=== PATIENT | male | born 1955 | race Caucasian/White ===

== ENCOUNTER 2020-08-01 09:58 | Outpatient (CLI) | payer OTHER, SELFPAY ==
[2020-08-01 10:53] LABS: SARS-CoV-2 Ag Positive (Negative)
== END 2020-08-01 09:59 | disposition home or self-care (01) ==
LOC: CHSLAB 10:04
PROVIDERS: PCP Internal Medicine; Visit Provider Internal Medicine
DX: U07.1 COVID-19 (principal); R50.9 Fever, unspecified; R53.83 Other fatigue
CPT/HCPCS: 87426

== ENCOUNTER 2021-04-02 11:42 | Outpatient (CLI) | payer OTHER, SELFPAY ==
--- NOTE | ~2021-04-02 | XR_ITS ---
EXAMINATION: XR lumbar spine 2-3V DATE: 04/02/2021 12:09 INDICATION: Low back pain TECHNIQUE: Anteroposterior and lateral views of the lumbar spine, and cone-down lateral view of the l umbosacral junction were obtained. COMPARISON: None. FINDINGS: Bone alignment is normal. There is no fracture. There is severe loss of intervertebral disc space height throughout the lumbar spine. The vertebral body heights are maintained. There is severe facet osteoarthritis throughout the lumbar spine. IMPRESSION: 1. Severe lumbar spondylosis without acute findings. Reviewed, dictated and finalized at location A.
--- NOTE | ~2021-04-02 | XR_ITS ---
EXAMINATION: XR hip LT min 2V INDICATION: Left hip pain TECHNIQUE: Two views of the left hip are obtained. COMPARISON: None available FINDINGS: Bone alignment is normal. There is no fracture. The soft tissues are unremarkable. IMPRESSION: 1. No acute osseous abnormality. Reviewed, dictated and finalized at location A.
--- NOTE | ~2021-04-02 | XR_ITS ---
EXAMINATION: XR sacroiliac joints min 3V DATE: 04/02/2021 12:08 INDICATION: Sacroiliac joint pain TECHNIQUE: AP and left and right oblique views of the sacroiliac joints were obtained. COMPARISON: CT dated 03/31/2015 FINDINGS: Alignment is normal. No fracture. Nonuniform joint space narrowing at the bilateral sacral joints, mild on the left and moderate on the right. No erosions to suggest inflammatory sacroiliitis. Absent coccyx which could be either developmental or sequela of prior surgery. Moderate lower lumbar spondylosis. Mild bilateral hip osteoarthritis with small right os acetabuli. IMPRESSION: 1. 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 Reviewed, dictated and finalized at location A.
== END 2021-04-02 11:43 | disposition home or self-care (01) ==
LOC: CHSLAB 11:46
PROVIDERS: PCP Internal Medicine; Visit Provider Internal Medicine
DX: M54.5 Low back pain (principal); M53.3 Sacrococcygeal disorders, not elsewhere classified; M25.552 Pain in left hip
CPT/HCPCS: 72100; 72202; 73502

== ENCOUNTER 2021-04-10 12:15 | Outpatient (CLI) | payer OTHER, SELFPAY ==
--- NOTE | ~2021-04-10 | XR_ITS ---
EXAMINATION: XR sacroiliac jt inj w imag BI DATE: 04/10/2021 14:37 INDICATION: Lateral sacral iliac joint pain TECHNIQUE: A time-out was performed to verify the patient's name, date of , and procedure to b e performed. The procedure including the risks, benefits, and alternatives was discussed with the pat ient. Risks discussed included bleeding and infection. The patient understood the risks and agreed to proceed. The skin overlying the left sacroiliac joint was prepped and draped in usual sterile fashio n. Anesthetic was administered with 1% lidocaine subcutaneously. A 22 G needle was advanced under f luoroscopic guidance into the joint. Localized deflection of the needle tip with angulation of the ne edle as well as injection of 1 mL of Omnipaque 240 confirmed intra-articular position of the needle. Subsequently, injectate consisting of 7 mL of a 5:1:1 mixture of 1% lidocaine: 4 mg/mL dexamethasone : 40 mg/mL Kenalog for a total dosage of 4 mg dexamethasone, 40 mg Kenalog was instilled. Washout of contrast was seen confirming intra-articular administration. The needle was removed and the entry sit e was cleaned and dressed. Attention was then turned to the right sacroiliac joint with the overlying skin prepped and draped in usual sterile fashion. Anesthetic was again administered with 1% lidocaine subcutaneously. A 22 G ne edle was advanced under fluoroscopic guidance into the joint. Localized deflection of the needle tip with angulation of the needle as well as injection of 1 mL of Omnipaque 240 confirmed intra-articular position of the needle. Subsequently, injectate consisting of 7 mL of a 5:1:1 mixture of 1% lidocai ne: 4 mg/mL dexamethasone: 40 mg/mL Kenalog for a total dosage of 4 mg dexamethasone, 40 mg Kenalog w as instilled. Washout of contrast was seen confirming intra-articular administration. The needle was removed and the entry site was cleaned and dressed. There were no immediate complications. Fluoroscop y exposure time was 0.8 minutes. The total number of images was 7. FINDINGS: Real-time fluoroscopy demonstrates the needle in first the left sacroiliac joint and subseq uently in the right sacroiliac joint. On both sides the patient's pain prior to procedure:2/10. Emelyn ent's pain on both sides following the procedure: 0/10. IMPRESSION: 1. Successful bilateral sacroiliac joint injections of local anesthetic and steroid with decrease in the patient's presenting pain. Reviewed, dictated and finalized at location A. IMPRESSION: 1. Successful bilateral sacroiliac joint injections of local anesthetic and erick roid with decrease in the patient's presenting pain.
== END 2021-04-10 12:16 | disposition home or self-care (01) ==
PROVIDERS: PCP Internal Medicine; Visit Provider Internal Medicine
DX: M53.3 Sacrococcygeal disorders, not elsewhere classified (principal)
CPT/HCPCS: 27096; G0260; J1100; J3301; Q9966

== ENCOUNTER 2021-05-15 12:54 | Outpatient (RCR) | payer OTHER, SELFPAY ==
--- NOTE | 2021-05-15 14:07 | PTOPEVAL ---
Thank you for referring Deion Lopez to [facility].? The patient is scheduled to be seen for therapy? ____x/week for ___ weeks. Please review, sign, date and return this plan of care POLO. I agree with and certify that the following plan of care is medically necessary. Referring Physician Date Admitting Provider: Attending Provider: Anastacio Johnson MD Referring Provider: *PT Outpatient Evaluation Start: 05/15/21 13:07 Freq: Status: Active Protocol: Document 05/15/21 13:05 MALI (Rec: 05/15/21 14:07 MALI [email or web address]) Therapy Assessment Status Assessment Status Assessment Status Evaluation Evaluation Information Problem Diagnosis low back/hip pain Onset 05/09/21 Additional Evaluation Detail oswestry = 34% functionally declined Subjective Information patient reports he has Query Text:As Reported By Patient/ increased he has increased Family pain in the SI joints when he lays down and sits for increased time. he reports the pain feels like a burning sensation. he reports this has been going on since about november of this year. he reports the L side lower back and buttock are worse than the R. he reports he does ocassionally have L sided groin pain as well. he reports he has had shots in the bilaeral SI joints. he reports pain is worse in the afternoon. Prior Level of Function Comments Additional Prior Level of Function prior to november, he reports no Comments issues with the back or hips for years. Pain Assessment Timing of Pain Assessment Timing of Pain Assessment Assessment Pain Scale Pain Scale Used Numeric (1 - 10) Self Report Pain Assessment Lower Back Reported Pain Level 1 Pain Description Burning Pain Frequency Chronic Greatest Pain Intensity 4 Additional Pain Comments L worse than R side pain/ burning Pain Score Pain Score 1: Self Report Interventions Used Interventions Used By Clinicians Activity or ADL's,Education, Electrical Stimulation, Exercise,Heat,Manual Therapy Techniques Lower Extremity Range of Motion General Lower Extremity Ran
--- NOTE | 2021-06-12 11:33 | PTOPEVAL ---
Thank you for referring Deion Lopez to [facility].? The patient is scheduled to be seen for therapy? ____x/week for ___ weeks. Please review, sign, date and return this plan of care POLO. I agree with and certify that the following plan of care is medically necessary. Referring Physician Date Admitting Provider: Attending Provider: Anastacio Johnson MD Referring Provider: *PT Outpatient Evaluation Start: 05/15/21 13:07 Freq: Status: Active Protocol: Document 06/12/21 11:00 ACR (Rec: 06/12/21 11:32 [email or web address]) Therapy Assessment Status Assessment Status Assessment Status Discharge Evaluation Information Problem Diagnosis low back/hip pain Onset 05/09/21 Subjective Information Patient reports that he is Query Text:As Reported By Patient/ good to go and has no Family difficulty with anything anymore. He reports no pain and is doing all of his exercises at home. Patient reports no burning sensations since he began and only has pain in the groin occasionally . Pain Assessment Timing of Pain Assessment Timing of Pain Assessment Assessment Pain Scale Pain Scale Used Numeric (1 - 10) Self Report Pain Assessment Left Groin Reported Pain Level 0 Greatest Pain Intensity 2 Lower Back Reported Pain Level 0 Greatest Pain Intensity 2 Pain Score Pain Score 0,0: Self Report Interventions Used Interventions Used By Clinicians Activity or ADL's,Exercise Cervical and Lumbar Muscle Testing Lumbar Strength Upper Abdominal Strength 3+Fair+ Lower Abdominal Strength 3+Fair+ Lower Extremity Muscle Strength Testing Hip Strength Left Hip Flexion Strength 4+ Good + Right Hip Flexion Strength 4+ Good + Knee Strength Bilateral Knee Flexion Strength 5 Normal Knee Extension Strength 5 Normal Ankle Strength Bilateral Ankle Dorsiflexion Strength 5 Normal Ankle Plantarflexion Strength 4+ Good + Muscle Length Testing Muscle Length Testing Piriformis w/Hip Flexion >90 Degrees (R) Moderate Tightness,(L) Moderate Tightness Left Hamstring Length 10 Query Text:(90 - 90 Position) Right Hamstring Length 10 Query Text:(90 - 90 Position) Palpation Assessment Palpation Palpation Patient has no TTP this visit. Special Tests-Lower Extremity Hip Special Tests Hip Scouring Negative Left,Negative Right CHRISTIAN Negative Left,Negative Right
== END 2021-06-12 11:40 | disposition home or self-care (01) ==
LOC: CHSPT 12:54
PROVIDERS: PCP Internal Medicine; Visit Provider Internal Medicine
DX: M54.5 Low back pain (principal); M25.559 Pain in unspecified hip
CPT/HCPCS: 97014; 97110; 97161; 97530; G0283

== ENCOUNTER 2021-07-30 12:29 | Outpatient (CLI) | payer OTHER, SELFPAY ==
--- NOTE | ~2021-07-30 | XR_ITS ---
EXAMINATION: XR sacroiliac jt inj w imag BI DATE: 07/30/2021 14:40 INDICATION: Bilateral sacroiliac joint pain TECHNIQUE: A time-out was performed to verify the patient's name, date of , and procedure to b e performed. The procedure including the risks, benefits, and alternatives was discussed with the pat ient. Risks discussed included bleeding and infection. The patient understood the risks and agreed to proceed. Attention was first turned to the left sacroiliac joint. The skin overlying the left sacroi liac joint was prepped and draped in usual sterile fashion. Anesthetic was administered with 1% lido stephanie subcutaneously. A 22 G needle was advanced under fluoroscopic guidance into the joint. Inject ion of 1 mL of Omnipaque 240 confirmed intra-articular position of the needle. Subsequently, injecta te consisting of 5 mL of a 3:1:1 mixture of 1% lidocaine, 4 mg/mL dexamethasone and 40 mg/mL Kenalog for a total dosage of 4 mg dexamethasone and 40 mg Kenalog was instilled. Washout of contrast was see n confirming intra-articular administration. The needle was removed and the entry site was cleaned an d dressed. Attention was then turned to the right sacroiliac joint. The skin overlying the right sacroiliac join t was prepped and draped in usual sterile fashion. Anesthetic was administered with 1% lidocaine sub cutaneously. A 22 G needle was advanced under fluoroscopic guidance into the joint. Injection of 1 mL of Omnipaque 240 confirmed intra-articular position of the needle. Subsequently, injectate consis ting of 5 mL of a 3:1:1 mixture of 1% lidocaine, 4 mg/mL dexamethasone and 40 mg/mL Kenalog for a tot al dosage of 4 mg dexamethasone and 40 mg Kenalog was instilled. Washout of contrast was seen confirm ing intra-articular administration. The needle was removed and the entry site was cleaned and dressed . There were no immediate complications. Combined fluoroscopy exposure time for both procedures was 1 .1 minutes. The total number of images was 9. Total DAP was 7.767 mGycm^2. FINDINGS: Real-time fluoroscopy demonstrates the needle in the left and right sacroiliac joints. Emelyn ent's pain prior to procedure:04/17. Patient's pain 15 minutes following the procedure: 12/16. IMPRESSION: 1. Bilateral sacroiliac joint injections of local anesthetic and steroid with decrease in the patient 's presenting pain. Reviewed, dictated and finalized at location A. O BRACER IMPRESSION: 1. Bilateral sacroiliac joint injections of local anesthetic and steroid with d ecrease in the patient's presenting pain.
== END 2021-07-30 12:30 | disposition home or self-care (01) ==
LOC: ANHIMG 12:35
PROVIDERS: PCP Internal Medicine; Visit Provider Internal Medicine
DX: M53.3 Sacrococcygeal disorders, not elsewhere classified (principal)
CPT/HCPCS: 27096; G0260; J1100; J3301

== ENCOUNTER → 2021-10-04 09:14 | Outpatient (CLI) | payer OTHER, SELFPAY ==
--- NOTE | ~2021-10-04 | MR_ITS ---
EXAMINATION: MR lumbar spine wo [facility] EXAM DATE: 10/04/2021 09:59 INDICATION: Lumbar radiculopathy. TECHNIQUE: Multi-sequential, multiplanar MR images of the lumbar spine were obtained without contrast . Sagittal T1, T2, T2 fat saturation images. Axial T2 weighted images. There is no prior study for comparison. FINDINGS: There is moderate disc disease at L1-2 and L2-3. L3-4 vertebral bodies are fused. There is mild to moderate disc disease L4-5 and L5-S1. There is 3 mm retrolisthesis L2 on L3. The conus medull ines terminates at the L3 level and which is considered low in position, tethered. Mild diffuse loss of thoracolumbar vertebral body heights. There are no focal marrow signal abnormalities suspicious fo r malignancy or acute fracture. There is a horseshoe kidney, congenital variant. Level by level evaluation: T12-L1: Disc does not extend beyond the endplate margin. Facet arthropathy: Mild left. Neural foraminal stenosis: No stenosis. Central canal stenosis: No stenosis. L1-L2: There is a mild diffuse disc bulge. Facet arthropathy: Mild bilateral. Neural foraminal stenosis: Mild to moderate left. Central canal stenosis: No stenosis. L2-L3: There is a moderate diffuse disc bulge. Facet arthropathy: Moderate to severe right, moderate left. Neural foraminal stenosis: Moderate left, mild to moderate right. Central canal stenosis: Moderate left lateral recess stenosis, mild to moderate central canal. L3-L4: This level is partially fused. Facet arthropathy: Partially fused. Neural foraminal stenosis: No stenosis. Central canal stenosis: No stenosis. L4-L5: There is a moderate diffuse disc bulge. Facet arthropathy: Severe. Neural foraminal stenosis: Moderate to severe right, moderate left. Central canal stenosis: Severe. L5-S1: There is a mild to moderate diffuse disc bulge. Facet arthropathy: Severe. Neural foraminal stenosis: Moderate to severe bilateral. Central canal stenosis: Moderate to severe. IMPRESSION: 1. Low-lying conus medullaris tip, tethered cord. 2. Lower lumbar severe facet arthropathy and L4-5 Central canal stenosis. 3. L5-S1 moderate to severe central canal and bilateral neural foraminal stenosis. Reviewed, dictated and finalized at location A. PING AND RECEIVING SPECIALIST IMPRESSION: 1. Low-lying conus medullaris tip, tethered cord. 2. Lower lumbar severe facet arthropathy and L4-5 Central canal stenosis. 3. L5-S1 moderate to severe central canal and bilateral neural foraminal steno sis.
== END ==
PROVIDERS: PCP Internal Medicine; Visit Provider Internal Medicine
DX: M47.27 Other spondylosis with radiculopathy, lumbosacral region (principal); M48.07 Spinal stenosis, lumbosacral region; M47.25 Other spondylosis with radiculopathy, thoracolumbar region; M48.05 Spinal stenosis, thoracolumbar region
CPT/HCPCS: 72148

== ENCOUNTER 2022-10-31 12:25 | Outpatient (CLI) | payer MEDICARE, SELFPAY ==
--- NOTE | ~2022-10-31 | XR_ITS ---
XR lumbar spine min 4V 10/31/2022 12:55 Indication: Radiculopathy. Low back pain. Procedure: 4 views lumbar spine Comparison: 04/02/2021 Findings: There is severe disc narrowing at all lumbar levels. There is grade 1 degenerative spondylo sis listhesis at L4-5. There are prominent marginal osteophytes at each level. There is moderate-maureen re facet hypertrophy at L3-4 through L5-S1. No significant alteration of alignment with flexion or ex tension. Sacral foramen are symmetric. Impression: 1: Severe lumbar spondylosis. Reviewed, dictated and finalized at location L. ISION AGRICULTURE TECHNICIAN Impression: 1: Severe lumbar spondylosis.
== END 2022-10-31 12:26 | disposition home or self-care (01) ==
PROVIDERS: PCP Internal Medicine; Visit Provider Neurological Surgery
DX: M47.26 Other spondylosis with radiculopathy, lumbar region (principal); M48.061 Spinal stenosis, lumbar region without neurogenic claudication
CPT/HCPCS: 72110

== ENCOUNTER 2023-02-02 10:08 | Inpatient (IN) | payer MEDICARE, SELFPAY ==
[2023-02-02] VITALS (27 sets, daily range): BP systolic 109–124; BP diastolic 51–75; PULSE 79–97; RESP 17–22; TEMP 36.6–37.7; O2SAT 88–97; BMI 43.2
--- NOTE | ~2023-02-02 | CT_ITS ---
EXAMINATION: CTA chest PE protocol DATE: 02/02/2023 12:59 INDICATION: Shortness of breath. Chest pain. TECHNIQUE: Computed tomography angiography (CTA) of the chest was performed with 100 mL Omnipaque-350 intravenous contrast timed to evaluate the pulmonary arteries. Coronal maximum intensity projection 3D-reconstructions were created by the technologist. Automated exposure control and iterative reconst ruction technique were employed. The dose-length product was 967.08 mGy-cm. COMPARISON: None. FINDINGS: There are airspace and groundglass opacities involving right lower lobe and posterior segme nt right upper lobe with air bronchograms. There are airspace and groundglass opacities with volume l oss involving the apicoposterior segment left upper lobe and left lower lobe. No pleural effusion. Th ere is left ventricular enlargement of the heart. No pericardial effusion. The central pulmonary blanca jean paul are enlarged, consistent with pulmonary hypertension. There are acute pulmonary emboli in segmen aneudy arteries in right upper lobe, right lower lobe, and right middle lobe. There is mild mediastinal lymphadenopathy, likely reactive. There are bridging endplate osteophytes at multiple levels in the s pine, consistent with diffuse idiopathic skeletal hyperostosis (DISH). There is moderate thoracic spo ndylosis. IMPRESSION: 1. Acute pulmonary emboli in segmental arteries in right upper lobe, right middle lobe, and right low er lobe. 2. Airspace and groundglass opacities involving the upper and lower lobes, consistent with pneumonia. 3. Mild mediastinal lymphadenopathy, likely reactive. Reviewed, dictated and finalized at location A. IMPRESSION: 1. Acute pulmonary emboli in segmental arteries in right upper lobe, right midd le lobe, and right lower lobe. 2. Airspace and groundglass opacities involving the upper and lower lobes, cons istent with pneumonia. 3. Mild mediastinal lymphadenopathy, likely reactive.
--- NOTE | ~2023-02-02 | XR_ITS ---
EXAMINATION: XR chest 1V portable DATE: 02/02/2023 19:19 INDICATION: Hypoxia TECHNIQUE: frontal view of the chest was obtained. COMPARISON: Chest radiograph and CT date FINDINGS: No significant change in airspace opacities in the bilateral mid to lower lung zones consistent with pneumonia. No pleural effusion or pneumothorax. The cardiomediastinal silhouette is within normal faith its for AP technique. IMPRESSION: 1. Persistent airspace opacities in the bilateral mid and lower lung zones consistent with pneumonia and/or pulmonary infarct given the known pulmonary emboli identified on prior CT. Reviewed, dictated and finalized at location A. IMPRESSION: 1. Persistent airspace opacities in the bilateral mid and lower lung zones cons istent with pneumonia and/or pulmonary infarct given the known pulmonary emboli identified on prior CT.
--- NOTE | ~2023-02-02 | XR_ITS ---
EXAMINATION: XR chest 2V DATE: 02/02/2023 11:00 INDICATION: Cough and shortness of breath. TECHNIQUE: Frontal and lateral views of the chest were obtained on 3 radiographs. COMPARISON: Chest single view 03/21/2015, chest CT 01/13/2016 FINDINGS: There are airspace opacities in the perihilar regions and lower lung zones. There is a smal l left pleural effusion. No pneumothorax. The heart size is normal. Mediastinal lipomatosis is noted. There are suture anchors in the humeral heads. IMPRESSION: 1. Airspace opacities in the perihilar regions and lower lung zones, consistent with atelectasis vers us pneumonia. 2. Small left pleural effusion. Reviewed, dictated and finalized at location A. IMPRESSION: 1. Airspace opacities in the perihilar regions and lower lung zones, consistent with atelectasis versus pneumonia. 2. Small left pleural effusion.
--- NOTE | 2023-02-02 10:27 | ED.GENADULT ---
HPI - General Adult General Chief complaint: Upper Respiratory Infection Stated complaint: Weakness Time Seen by Provider: 02/02/23 10:27 Source: patient and family Mode of arrival: ambulatory Limitations: no limitations History of Present Illness HPI narrative: patient is a 67-year-old morbidly obese white male complains of a nonproductive cough for the last 6 days associated with shortness of breath pain in his ribs when he coughs. Denies any chest pain nausea vomiting. Denies any other pain. says he is not drinking very much. Patient says he does not have much with taste. tested for COVID 2 days ago was negative. He has had a vaccine. Denies any back pain or other pains. Denies any swelling lumps or bumps rash or itching dizziness or lightheadedness problems walking talking seeing or hearing or any other complaints. Related Data Home Medications Medication Instructions Recorded Confirmed allopurinol 300 mg tablet 300 mg PO DAILY 09/17/22 02/02/23 amlodipine 5 mg tablet 5 mg PO DAILY 09/17/22 02/02/23 carvedilol 25 mg tablet 25 mg PO Q12H 09/17/22 02/02/23 fenofibrate 54 mg tablet 54 mg PO DAILY 09/17/22 02/02/23 losartan 100 mg tablet 100 mg PO DAILY 09/17/22 02/02/23 meloxicam 15 mg tablet 15 mg PO DAILY 09/17/22 02/02/23 omeprazole 40 mg capsule,delayed 40 mg PO DAILY 09/17/22 02/02/23 release tamsulosin 0.4 mg capsule 0.4 mg PO DAILY 09/17/22 02/02/23 solifenacin 10 mg tablet 10 mg PO DAILY 02/02/23 02/02/23 Allergies Allergy/AdvReac Type Severity Reaction Status Date / Time lisinopril AdvReac Unknown Itching Verified 02/02/23 10:18 [facility] Past Medical History Medical History Actinic keratosis Arthritis Cellulitis of perineum Coronary artery disease Hyperlipemia, mixed Hypertension Lobulated, fused and horseshoe kidney Lumbar radiculopathy Lumbar spondylosis Lumbar stenosis Obstructive sleep apnea Osteoarthritis of right knee Pain in left hip Right shoulder pain Skin cancer Type 2 diabetes mellitus Varicose veins of both lower extremities with complications Surgical History Surgical History History of arthroscopic knee surgery History of arthroscopy of both shoulders History of carpal tunnel surgery Family History Family History Father Family history of gout Family history of diabetes mellitus in first degree relative Family history of heart disease in male family member before age 55 Sibling Family history of heart disease in male family member before age 55 Other Diabetes mellitus Family history of cardiovascular disease Hypertension Social History Social History Smoking status: Never smoker Alcohol intake: current Drinks per week: 5 Alcohol use details: beer Lack of Transportation: No Lack of Food: Never True Current Housing: I Have Housing Concerned About Future Housing: No Difficulty Paying Gas/Electric Bills: No Difficulty Paying for Meds: No Currently Unemployed: No Education: Don't Know Difficulty w/ Childcare or Family Care: No Living arrangements: with family Exam Narrative: White male Morbidly obese no apparent distress. ?Head:? Normocephalic atraumatic.? Eyes conjunctiva pink sclera nonicteric.? lips are dry with a scab from where cracked.? Oropharynx is clear with moist mucous membranes no exudates.? Neck is supple no lymphadenopathy nontender full range of motion. ?Back is nontender.? Chest nontender.? Back nontender Lungs with diffuse wheezes. No rales or rhonchi.? Heart is regular rate rhythm without murmurs gallops or rubs.? Abdomen morbidly obese. Well-healed surgical scar in left lower abdomen and is soft and nontender no hepatosplenomegaly or masses no CVA tenderness no abdominal bruits.? Extr
--- NOTE | 2023-02-02 10:30 | ECG_ITS ---
Measurements Intervals [place] Rate: 79 P: 25 WI: 155 QRS: -4 QRSD: 92 T: 3 QT: 339 QTc: 390 Interpretive Statements SINUS RHYTHM BASELINE ARTIFACT- I, II, III, AVR, AVL, AVF NORMAL ECG NO PREVIOUS ECG AVAILABLE FOR COMPARISON Electronically Signed On 02-02-2023 13:51:55 CDT by David Rouse D.O.
--- NOTE | 2023-02-02 10:35 | PC.NURSE ---
erp at bedside for initial assessment
[2023-02-02] MEDS: IPRATROPIUM 0.5 MG/ALBUTEROL SULFATE 2.5 MG AMPUL.NEB 3 ML INHALATION ×3 (11:10→23:58)
[2023-02-02] MEDS: SODIUM CHLORIDE 0.9% IV 1,000 ML 999 ML IV CONT (11:30)
[2023-02-02] MEDS: AZITHROMYCIN 500 MG/NS 250 ML 500 MG/250 ML BAG 250 MG IVPB (11:31)
[2023-02-02 11:35] LABS: Hematocrit 39.6 % (37.0-46.0); Mean Corpuscular HGB Conc 32.8 g/dL (32.0-36.0); Mean Corpuscular Hemoglobin 31.6 pg (27.0-31.0); Mean Corpuscular Volume 96.1 fL (78.0-102.0); Mean Platelet Volume 9.1 fl (8.7-11.0); Platelet Count Result 227 K/mm3 (150-420); Red Blood Count 4.12 M/mm3 (4.70-6.10); Red Cell Distribution Width 15.3 % (11.6-14.4); White Blood Count 11.7 K/mm3 (4.8-10.8)
[2023-02-02 11:55] LABS: Alanine Aminotransferase 36 U/L (16-63); Albumin Level 2.2 g/dL (3.4-5.0); Alkaline Phosphatase 98 U/L (46-116); Anion Gap 8 mmol/L (8-16); Aspartate Amino Transferase 31 U/L (15-37); Blood Urea Nitrogen 36 mg/dL (7-18); Calcium 9.2 mg/dL (8.5-10.1); Carbon Dioxide 29 mmol/L (21-32); Chloride 100 mmol/L (98-108); Estimated CRCL calculation 68 ml/min; Estimated Glomerular Filt Rate 55; Glucose 117 mg/dL (70-99); Magnesium 2.4 mg/dL (1.8-2.4); NT Pro B Type Natriuretic Pept 449 pg/mL (0-125); Osmolality Calculated 293 mOsm/kg (285-295); Potassium 4.2 mmol/L (3.5-5.1); Sodium 137 mmol/L (136-145); Total Protein 7.6 g/dL (6.4-8.2)
[2023-02-02 11:56] LABS: Troponin I < 4.0 ng/L (0.00-60.4)
[2023-02-02 12:07] LABS: Lactic Acid Reflex 1.1 mmol/L (0.4-2.0)
[2023-02-02 12:14] LABS: Influenza A QL RT-PCR Negative (Negative); Influenza B QL RT-PCR Negative (Negative); RSV RNA, RT-PCR Negative (Negative); SARS-CoV-2 RNA PCR Negative (Negative)
[2023-02-02 12:15] LABS: Partial Thromboplastin Time 29.1 SEC (23.90-30.70); Prothrombin Time 10.5 Seconds (9.50-12.10)
--- NOTE | 2023-02-02 12:25 | PC.NURSE ---
Patient being taken down to ct.
--- NOTE | 2023-02-02 12:57 | PC.NURSE ---
patient back in room from ct.
[2023-02-02] MEDS: ENOXAPARIN 120 MG/0.8 ML SYRINGE SUB-Q (12:59)
--- NOTE | 2023-02-02 15:00 | PC.NURSE ---
Patient admitted to room 208 and able to transfer from w/c to bed with minimal assist of 1. Patient orientated to hospital policies re: rapid response, masking, bed controls, visiting hours, meals, use of call light and tv controls.
[2023-02-02] MEDS: SODIUM CHLORIDE 0.9% IV 1,000 ML 150 ML IV CONT (15:45)
[2023-02-02] MEDS: BENZONATATE 100 MG CAPSULE 200 MG PO (17:05)
--- NOTE | 2023-02-02 17:24 | PC.NURSE ---
CONCESSION CASHIER notified of patient's loose stools and that patient had taken immodium at home. CONCESSION CASHIER had no new orders. Will continue to monitor.
--- NOTE | 2023-02-02 18:41 | ECG_ITS ---
Measurements Intervals [place] Rate: 86 P: 41 DC: 152 QRS: 26 QRSD: 90 T: 39 QT: 335 QTc: 402 Interpretive Statements SINUS RHYTHM LOW QRS VOLTAGE IN PRECORDIAL LEADS BASELINE ARTIFACT- I, II, III, AVR, AVL, AVF, V3-V6 BORDERLINE ECG COMPARED TO ECG 02/02/2023 11:07:38 NO SIGNIFICANT CHANGES Electronically Signed On 02-03-2023 8:02:38 CDT by David Rouse D.O.
[2023-02-02] MEDS: ALBUTEROL SULFATE (*SP) INHALER 2 PUFF INHALATION (18:43)
[2023-02-02] MEDS: HYDROcodone/acetaminophen (*CRX) 5-325 MG TABLET 1 TAB PO ×2 (18:48→22:55)
[2023-02-02] MEDS: LORazepam INJ (*CRX) 2 MG/ML VIAL 0.5 MG IV PUSH (18:52)
--- NOTE | 2023-02-02 19:16 | PC.NURSE ---
Patient called sports writer to room and c/o severe R sided chest pain and difficulty breathing. COMMERCIAL ESCROW ASSISTANT notified of change in condition. Patient required increase in O2 from 3L to 4L. Respiratory notified and administered another breathing treatment. Patient showing distress with increased respirations and increased temperature and blood pressure. Traveling Crane Operator administered Narberth for pain and ativan to relax patient and help to slow respirations. returned to visit patient and brought in home medication that our pharmacy does not stock, and Cpap machine. Labs drawn, EKG completed. Patient is responding well to increased O2 and medication. Awaiting test results and further orders. Non formulary medication awaiting pharmacy approval.
[2023-02-02 19:19] LABS: Base Excess ABG 1.1 mmol/L (0-2); HCO3 ABG 25.1 mmol/L (23-29); Oxygen Content ABG 13.4 %vol (16.0-22.0); Oxygen Saturation ABG 93.6 % (95-97); PCO2 ABG 37.6 mmHg (35-45); PO2 ABG 68.5 mmHg (80-90); Total Hemoglobin 10.2 g/dL (12.0-18.0); pH ABG 7.44 (7.35-7.45)
[2023-02-02 19:21] LABS: Device NASAL CANNULA; Modified Allen's Test Pass; Site Drawn RIGHT RADIAL
[2023-02-02 19:33] LABS: Partial Thromboplastin Time 29.5 SEC (23.90-30.70); Prothrombin Time 10.9 Seconds (9.50-12.10)
--- NOTE | 2023-02-02 19:57 | PHAR ---
DRUG NAME: FENOFIBRATE INGREDIENTS: FENOFIBRATE -- 54 MG COLOR: LIGHT YELLOW SHAPE: ELEM IMPRINT: FN1 FORM: ORAL TABLET
--- NOTE | 2023-02-02 20:20 | PC.NURSE ---
Pt's brought in home dose of fenofibrate into hospital. This RN spoke w/Mala the pharmacist at [facility] and Rodrigo Arcos AGRONOMY RESEARCH MANAGER about medication. Order placed for medication to start in the am 1 tab po daily. Home medication bottle placed medication bin located in the med room on the 2nd floor.
[2023-02-02] MEDS: methylPREDNISolone SOD SUCC 40 MG VIAL IV PUSH (21:07)
[2023-02-02] MEDS: carvediloL 12.5 MG TABLET 25 MG PO (21:07)
[2023-02-02] MEDS: traZODone HCL 50 MG TABLET PO (21:08)
[2023-02-02] MEDS: guaiFENesin/DEXTROMETHORPHAN 5 ML UDC PO (21:14)
--- NOTE | 2023-02-02 21:20 | PC.NURSE ---
Patient states he cannot tolerate CPAP on with nasal cannula, unable to bleed O2 into CPAP d/t age of machine and tubing. Nasal cannual removed, SPO2 dropped to 88% on room air. CPAP removed and nasal cannula reapplied at 4L, SPO2 recovered to 93%. Patient requesting to not wear CPAP at this time.
[2023-02-02] MEDS: ENOXAPARIN 100 MG/ML SYRINGE SUB-Q (22:11)
[2023-02-02] MEDS: ENOXAPARIN 60 MG/0.6 ML SYRINGE 41 MG SUB-Q (22:12)
[2023-02-02] MEDS: SODIUM CHLORIDE 0.9% IV 1,000 ML 100 ML IV CONT (23:07)
[2023-02-03] VITALS (18 sets, daily range): BP systolic 125–149; BP diastolic 60–80; PULSE 66–87; RESP 16–20; TEMP 36.3–36.9; O2SAT 91–97
--- NOTE | 2023-02-03 00:24 | PC.NURSE ---
RT able to bleed O2 into CPAP, SPO2 at 93%, tolerating CPAP well.
[2023-02-03] MEDS: IPRATROPIUM 0.5 MG/ALBUTEROL SULFATE 2.5 MG AMPUL.NEB 3 ML INHALATION ×4 (05:08→23:21)
[2023-02-03] MEDS: methylPREDNISolone SOD SUCC 40 MG VIAL IV PUSH ×3 (05:28→21:31)
[2023-02-03 05:52] LABS: Basophils Absolute Auto 0.04 K/mm3 (0.00-0.10); Basophils Percent Auto 0.4 % (0.0-1.0); Hematocrit 38.4 % (37.0-46.0); Hemoglobin 12.3 g/dL (12.4-15.3); Immature Granulocyte Absolute 0.15 K/mm3 (0.00-0.00); Immature Granulocyte Percent A 1.4 % (0.0-0.0); Lymphocytes Absolute Auto 0.49 K/mm3 (1.10-4.50); Lymphocytes Percent Auto 4.5 % (18.0-42.0); Mean Corpuscular Hemoglobin 31.1 pg (27.0-31.0); Mean Platelet Volume 9.3 fl (8.7-11.0); Monocytes Absolute Auto 0.19 K/mm3 (0.10-0.90); Monocytes Percent Auto 1.7 % (2.0-11.0); Neutrophils Absolute Auto 10.1 K/mm3 (1.7-7.2); Platelet Count Result 235 K/mm3 (150-420); Red Blood Count 3.96 M/mm3 (4.70-6.10); Red Cell Distribution Width 15.6 % (11.6-14.4); White Blood Count 10.9 K/mm3 (4.8-10.8)
[2023-02-03] MEDS: ENOXAPARIN 100 MG/ML SYRINGE SUB-Q (08:14)
[2023-02-03] MEDS: ENOXAPARIN 60 MG/0.6 ML SYRINGE 41 MG SUB-Q (08:15)
[2023-02-03] MEDS: TAMSULOSIN HCL 0.4 MG CAPSULE PO (08:17)
[2023-02-03] MEDS: SOLIFENACIN 5 MG TABLET 10 MG PO (08:18)
[2023-02-03] MEDS: BENZONATATE 100 MG CAPSULE 200 MG PO ×3 (08:18→17:41)
[2023-02-03] MEDS: allopurinoL 300 MG TABLET PO (08:18)
[2023-02-03] MEDS: PANTOPRAZOLE 40 MG TABLET PO (08:19)
[2023-02-03] MEDS: carvediloL 12.5 MG TABLET 25 MG PO ×2 (08:19→21:33)
[2023-02-03] MEDS: LOSARTAN POTASSIUM 50 MG TABLET 100 MG PO (08:19)
[2023-02-03] MEDS: amLODIPine BESYLATE 5 MG TABLET PO (08:20)
[2023-02-03] MEDS: MELOXICAM 7.5 MG TABLET 15 MG PO (08:43)
--- NOTE | 2023-02-03 09:23 | PM.IMHP ---
H&P: HPI History of Present Illness Date/Time: 02/03/23 09:23 Chief Complaint: dyspnea shortness of breath Narrative: this is a 67-year male that came to the hospital due to hypoxia was found to have pneumonia with blood clots right lung requiring oxygen. Patient has a history of hypertension, type 2 diabetes, skin cancer, back pain, and weakness. Patient states that he has has severe back pain and pain patient is more back pain than usual and was related to his shortness of breath associated due to the back pain. Patient lives home with his states that he does do a lot a walking as he does have shortness of breath, back pain. Patient was seen by pain management who gets injections unsure what is actually to his back and he states that he has been attempting to try to lose weight at this time patient is requiring 3 L of oxygen per nasal cannula. Patient has some acute kidney injury creatinine 1.31 with a BUN of 36 some anemia which is stable hemoglobin 12.3, white blood count of 10.9 patient has been afebrile. We will continue IV antibiotics we will give him several toe with this 1st dose today patient encouraged to drink plenty of water urine is yellow or orange as he does not drink water as he does not like the taste per patient. Review of Systems Review of Systems: shortness of breath , right leg edema, back pain All systems reviewed & are unremarkable except as noted in HPI and below PMFSH Past Medical History Medical History (Updated 02/03/23 @ 10:15 by Vikki Lora NP) Actinic keratosis Arthritis Cellulitis of perineum Coronary artery disease Hyperlipemia, mixed Hypertension Lobulated, fused and horseshoe kidney Lumbar radiculopathy Lumbar spondylosis Lumbar stenosis Obstructive sleep apnea Osteoarthritis of right knee Pain in left hip Right shoulder pain Skin cancer Type 2 diabetes mellitus Varicose veins of both lower extremities with complications Surgical History Surgical History History of arthroscopic knee surgery History of arthroscopy of both shoulders History of carpal tunnel surgery Family History Family History Father Family history of gout Family history of diabetes mellitus in first degree relative Family history of heart disease in male family member before age 55 Sibling Family history of heart disease in male family member before age 55 Other Diabetes mellitus Family history of cardiovascular disease Hypertension Social History Social History Smoking status: Never smoker Second hand tobacco smoke exposure: No Alcohol intake: current Drinks per week: 5 Alcohol use details: beer Substance use: never Lack of Transportation: YES Lack of Food: Never True Current Housing: I Have Housing Concerned About Future Housing: No Difficulty Paying Gas/Electric Bills: No Difficulty Paying for Meds: No Currently Unemployed: No Education: High School Diploma/GED Difficulty w/ Childcare or Family Care: No Living arrangements: with family Spiritual care concerns: No Meds Home Medications and Allergies Home Medications Medication Instructions Recorded Confirmed Type allopurinol 300 mg tablet 300 mg PO DAILY 09/17/22 02/02/23 History amlodipine 5 mg tablet 5 mg PO DAILY 09/17/22 02/02/23 History carvedilol 25 mg tablet 25 mg PO Q12H 09/17/22 02/02/23 History fenofibrate 54 mg tablet 54 mg PO DAILY 09/17/22 02/02/23 History losartan 100 mg tablet 100 mg PO DAILY 09/17/22 02/02/23 History meloxicam 15 mg tablet 15 mg PO DAILY 09/17/22 02/02/23 History omeprazole 40 mg capsule,delayed 40 mg PO DAILY 09/17/22 02/02/23 History release tamsulosin 0.4 mg capsule 0.4 mg PO DAILY 09/17/22 02/02/23 History solifenacin 10 mg tablet 10 mg PO DAILY 02/02/23 02/02/23 History
--- NOTE | 2023-02-03 10:47 | PHAR ---
VERIFIED PT'S HOME MEDICATION FENOFIBRATE NANOCRYSTALLIZED 54MG TABLET DAILY.
--- NOTE | 2023-02-03 11:36 | PC.NURSE ---
Notified DIRT SHOVELER of dark orange urine and low H&H. DIRT SHOVELER had no new orders at this time, but will recheck CBC.
[2023-02-03] MEDS: AZITHROMYCIN 500 MG/NS 250 ML 500 MG/250 ML BAG 250 MG IVPB (11:50)
--- NOTE | 2023-02-03 14:21 | PC.NURSE ---
Patient changed from observation status to inpatient status at 1421.
[2023-02-03] MEDS: RIVAROXABAN 15 MG TABLET PO (17:41)
--- NOTE | 2023-02-03 18:38 | PC.NURSE ---
Platform Worker decreased O2 to 2 L n/c and patient SPO2 at 94 %.
[2023-02-03] MEDS: traZODone HCL 50 MG TABLET PO (21:33)
[2023-02-03] MEDS: guaiFENesin/DEXTROMETHORPHAN 5 ML UDC PO (23:40)
[2023-02-04] VITALS (18 sets, daily range): BP systolic 123–127; BP diastolic 67–78; PULSE 74–113; RESP 16–20; TEMP 36.3–36.5; O2SAT 87–98
[2023-02-04] MEDS: IPRATROPIUM 0.5 MG/ALBUTEROL SULFATE 2.5 MG AMPUL.NEB 3 ML INHALATION ×4 (05:05→23:05)
[2023-02-04] MEDS: methylPREDNISolone SOD SUCC 40 MG VIAL IV PUSH ×3 (05:21→20:57)
[2023-02-04 05:46] LABS: Hemoglobin 12.4 g/dL (12.4-15.3); Mean Corpuscular HGB Conc 31.8 g/dL (32.0-36.0); Mean Corpuscular Hemoglobin 30.9 pg (27.0-31.0); Mean Corpuscular Volume 97.3 fL (78.0-102.0); Mean Platelet Volume 9.2 fl (8.7-11.0); Platelet Count Result 276 K/mm3 (150-420); Red Blood Count 4.01 M/mm3 (4.70-6.10); Red Cell Distribution Width 15.5 % (11.6-14.4); White Blood Count 12.4 K/mm3 (4.8-10.8)
[2023-02-04 06:09] LABS: Anion Gap 7 mmol/L (8-16); Blood Urea Nitrogen 26 mg/dL (7-18); Carbon Dioxide 26 mmol/L (21-32); Chloride 105 mmol/L (98-108); Estimated CRCL calculation 101 ml/min; Estimated Glomerular Filt Rate > 60; Glucose 173 mg/dL (70-99); Osmolality Calculated 294 mOsm/kg (285-295); Potassium 4.5 mmol/L (3.5-5.1); Sodium 138 mmol/L (136-145)
[2023-02-04 06:22] LABS: Calcium 9.3 mg/dL (8.5-10.1)
[2023-02-04] MEDS: RIVAROXABAN 15 MG TABLET PO ×2 (07:17→18:14)
--- NOTE | 2023-02-04 08:09 | HOMEO2EVAL ---
Evaluation was performed at [facility] Home Oxygen Evaluation RC: Home Oxygen (O2) Evaluation Start: 02/04/23 08:00 Freq: ONCE Status: Active Protocol: RPE Activity Type Activity Date Activity User E-sign Co-sign Detail Recorded Client Recorded Date Recorded By Document 02/04/23 07:30 [email or web address] 02/04/23 07:59 SJB Document 02/04/23 07:33 [email or web address] 02/04/23 07:59 SJB Document 02/04/23 07:38 [email or web address] [email or web address] 02/04/23 07:59 SJB 02/04/23 02/04/23 02/04/23 07:30 07:33 07:38 Home O2 Evaluation [Oxygen] -Test Phase Resting Exercise Exercise -Oxygen Delivery Room Air Room Air Nasal Cannula -Oxygen Flow Rate (L/min) 2 [Pulse Oximetry] -Pulse Oximetry (90-100 %) 92 87 L 89 L [Pulse Rate] -Pulse Rate (60-100 beats/min) 95 91 98 [Evaluation] -Activity Tolerance Good Good -Rating of Perceived Dyspnea (PD) +2 Mild, Some +2 Mild, Some Difficulty, Difficulty, Noticeable to Noticeable to the Observer the Observer -Rate of Perceived Exertion (PE) 11 Fairly light 11 Fairly light Query Text:Click the Protocol Button to View the RPE Scale [Exercise] -Ambulation Distance (feet) 100 100 -Ambulation Distance (meters) 30.47 30.47 [Comments] -Home Oxygen Evaluation Comments Will begin walk After walking Pt finished on room air, approx. 100 ft walk for a pushing w/c. on r/a, patient approx total of Pt just got 's Sp02 dropped 200 ft. On 2 done walking to to 87%. Pt lpm, pt's sp02 the bathroom started on 1 remained at 89% on r/a. lpm, after and above. PLB waiting sp02 was taught and only came up to encouraged. Pt 88%. Pt complains of a started on 2 dry cough lpm. Sp02 came today and of up to 2 lpm, feeling weak sp02 came up to but tolerated 92%. Will walk very well, continue walk. talking throughout. [Charges] -Treatment Charges O2 Evaluation - Inpatient
[2023-02-04] MEDS: BENZONATATE 100 MG CAPSULE 200 MG PO ×3 (09:41→17:45)
[2023-02-04] MEDS: carvediloL 12.5 MG TABLET 25 MG PO ×2 (09:42→20:49)
[2023-02-04] MEDS: PANTOPRAZOLE 40 MG TABLET PO (09:42)
[2023-02-04] MEDS: LOSARTAN POTASSIUM 50 MG TABLET 100 MG PO (09:43)
[2023-02-04] MEDS: TAMSULOSIN HCL 0.4 MG CAPSULE PO (09:44)
[2023-02-04] MEDS: amLODIPine BESYLATE 5 MG TABLET PO (09:44)
[2023-02-04] MEDS: allopurinoL 300 MG TABLET PO (09:44)
[2023-02-04] MEDS: MELOXICAM 7.5 MG TABLET 15 MG PO (09:45)
[2023-02-04] MEDS: SOLIFENACIN 5 MG TABLET 10 MG PO (09:55)
--- NOTE | 2023-02-04 10:14 | PM.IMPN ---
Progress Note: A&P Assessment and Plan (1) Pneumonia: Qualifiers: Laterality: bilateral Lung location: lower lobe of lung Pneumonia type: due to unspecified organism Qualified Code(s): J18.9 - Pneumonia, unspecified organism Code(s): J18.9 - Pneumonia, unspecified organism Status: Acute Assessment and Plan: IV Azithromycin Rocephin Guanfacine IV Steroid methy DUO nebs oxygen NC home oxygen needs 2l NC at all times at home daily weights labs in am Physical therapy to evaluate and Treat (2) Pulmonary emboli: Qualifiers: Pulmonary embolism type: multiple subsegmental (without acute cor pulmonale) Qualified Code(s): I26.94 - Multiple subsegmental pulmonary emboli without acute cor pulmonale Code(s): I26.99 - Other pulmonary embolism without acute cor pulmonale Status: Acute Assessment and Plan: Lovenox transitioned to Xarelto Xarelto continue Duo nebs Oxygen nasal cannula will need oxygen at home (3) Lumbar radiculopathy: Code(s): M54.16 - Radiculopathy, lumbar region Status: Acute Assessment and Plan: Pain medication (4) Obstructive sleep apnea: Code(s): G47.33 - Obstructive sleep apnea (adult) (pediatric) Status: Acute Assessment and Plan: CPAP brought from home have home setting (5) Hypertension: Code(s): I10 - Essential (primary) hypertension Status: Acute Assessment and Plan: stable continue home medication norvasc adjust as indicated Subjective Date/time seen: 02/04/23 10:14 Interval history: Patient has a lot of complaints states he feels worse than yesterday. Patient looks a lot better than yesterday and his lungs have improved from yesterday. Patient continues to have the cough dry and feet are looking better than previous. Patient has remained a febrile and he is eating and drinking without difficulties. Patient is ambulating without any difficulties although he has a lot of complaints if he has to move to far and he informs me he does not ambulate much at home. Patient states he sees pain management for his back pain. Exam Narrative: GENERAL:Well-appearing,obese , and in no acute distress. HEAD:Normocephalic, atraumatic. EYES: PERRLA ENT: Nares clear, no rhinorrhea or epistaxis. Mucous membranes moist. CHEST: Clear to diminished auscultation. No respiratory distress. HEART: Regular rate and rhythm. Normal peripheral pulses. ABDOMEN: Soft, nontender, nondistended, normal active bowel sounds. EXTREMITIES: decreased range of motion.right leg edema. SKIN: Warm, dry, no rash. NEURO: No focal deficits. Alert and oriented x3. Objective Data Vital Signs Vital Signs: Vital Signs - 24 hr 02/03/23 11:36 02/03/23 11:49 02/03/23 17:46 Temperature Pulse Rate 75 76 82 Respiratory Rate 18 20 20 Blood Pressure Pulse Oximetry 95 97 94 Oxygen Delivery Oxygen Flow Rate 4 3 2 02/03/23 17:56 02/03/23 16:00 02/03/23 19:57 Temperature 97.7 F Pulse Rate 71 79 71 Respiratory Rate 16 16 16 Blood Pressure 125/60 Pulse Oximetry 96 93 Oxygen Delivery Nasal Cannula Nasal Cannula Oxygen Flow Rate 3 2 02/03/23 21:33 02/03/23 23:21 02/03/23 23:22 Temperature Pulse Rate 83 76 Respiratory Rate 20 Blood Pressure Pulse Oximetry 91 91 Oxygen Delivery CPAP Oxygen Flow Rate 02/03/23 23:28 02/04/23 00:00 02/04/23 05:06 Temperature 97.5 F L Pulse Rate 72 83 105 H Respiratory Rate 20 18 20 Blood Pressure 127/68 Pulse Oximetry 95 95 Oxygen Delivery CPAP Oxygen Flow Rate 2 2 02/04/23 05:07 02/04/23 05:16 02/04/23 07:30 Temperature Pulse Rate 105 H 100 95 Respiratory Rate 20 Blood Pressure Pulse Oximetry 95 92 Oxygen Delivery CPAP Room Air Oxygen Flow Rate 2 02/04/23 07:33 02/04/23 07:38 02/04/23 08:00 Temperature 97.3 F L Pulse Rate 91 98 77 Respiratory Rate 16
[2023-02-04] MEDS: AZITHROMYCIN 500 MG/NS 250 ML 500 MG/250 ML BAG 250 MG IVPB (11:46)
[2023-02-04] MEDS: traZODone HCL 50 MG TABLET PO (20:51)
[2023-02-05] VITALS (7 sets, daily range): BP systolic 147–177; BP diastolic 67–77; PULSE 64–97; RESP 16–20; TEMP 36.1–36.2; O2SAT 94–95
[2023-02-05] MEDS: guaiFENesin/DEXTROMETHORPHAN 5 ML UDC PO (02:54)
[2023-02-05] MEDS: IPRATROPIUM 0.5 MG/ALBUTEROL SULFATE 2.5 MG AMPUL.NEB 3 ML INHALATION (05:08)
[2023-02-05 05:31] LABS: Hematocrit 38.4 % (37.0-46.0); Hemoglobin 12.2 g/dL (12.4-15.3); Mean Corpuscular HGB Conc 31.8 g/dL (32.0-36.0); Mean Corpuscular Hemoglobin 31.3 pg (27.0-31.0); Mean Corpuscular Volume 98.5 fL (78.0-102.0); Mean Platelet Volume 9.1 fl (8.7-11.0); Platelet Count Result 310 K/mm3 (150-420); Red Cell Distribution Width 15.5 % (11.6-14.4); White Blood Count 11.4 K/mm3 (4.8-10.8)
[2023-02-05 05:42] LABS: Anion Gap 7 mmol/L (8-16); Blood Urea Nitrogen 23 mg/dL (7-18); Carbon Dioxide 28 mmol/L (21-32); Chloride 104 mmol/L (98-108); Estimated CRCL calculation 110 ml/min; Estimated Glomerular Filt Rate > 60; Glucose 186 mg/dL (70-99); Osmolality Calculated 296 mOsm/kg (285-295); Potassium 4.7 mmol/L (3.5-5.1); Sodium 139 mmol/L (136-145)
[2023-02-05] MEDS: methylPREDNISolone SOD SUCC 40 MG VIAL IV PUSH (06:00)
[2023-02-05] MEDS: RIVAROXABAN 15 MG TABLET PO (06:03)
[2023-02-05] MEDS: allopurinoL 300 MG TABLET PO (08:16)
[2023-02-05] MEDS: amLODIPine BESYLATE 5 MG TABLET PO (08:16)
[2023-02-05] MEDS: BENZONATATE 100 MG CAPSULE 200 MG PO (08:16)
[2023-02-05] MEDS: LOSARTAN POTASSIUM 50 MG TABLET 100 MG PO (08:17)
[2023-02-05] MEDS: carvediloL 12.5 MG TABLET 25 MG PO (08:17)
[2023-02-05] MEDS: PANTOPRAZOLE 40 MG TABLET PO (08:17)
[2023-02-05] MEDS: TAMSULOSIN HCL 0.4 MG CAPSULE PO (08:17)
[2023-02-05] MEDS: SOLIFENACIN 5 MG TABLET 10 MG PO (08:17)
--- NOTE | 2023-02-05 09:53 | PM.DS ---
DS: Admitting Diagnosis Discharge Date 02/05/2023 Admitting Diagnosis PE, PNA DS: Discharge Diagnosis Discharge Diagnosis (1) Pneumonia: Qualifiers: Laterality: bilateral Lung location: lower lobe of lung Pneumonia type: due to unspecified organism Qualified Code(s): J18.9 - Pneumonia, unspecified organism Code(s): J18.9 - Pneumonia, unspecified organism Status: Acute Assessment and Plan: IV Azithromycin Rocephin Guanfacine IV Steroid methy DUO nebs oxygen NC home oxygen needs 2l NC at all times at home daily weights labs in am Physical therapy to evaluate and Treat Discharge Patient will discharge home with cefdinir , azithromycin Medrol pack , tessalon nai and guaifenesin patient instructed to use oxygen with activity (2) Pulmonary emboli: Qualifiers: Pulmonary embolism type: multiple subsegmental (without acute cor pulmonale) Qualified Code(s): I26.94 - Multiple subsegmental pulmonary emboli without acute cor pulmonale Code(s): I26.99 - Other pulmonary embolism without acute cor pulmonale Status: Acute Assessment and Plan: Lovenox transitioned to Xarelto Xarelto continue Duo nebs Oxygen nasal cannula will need oxygen at home Discharge continue Xarelto (3) Lumbar radiculopathy: Code(s): M54.16 - Radiculopathy, lumbar region Status: Acute Assessment and Plan: Pain medication (4) Obstructive sleep apnea: Code(s): G47.33 - Obstructive sleep apnea (adult) (pediatric) Status: Acute Assessment and Plan: CPAP brought from home have home setting (5) Hypertension: Code(s): I10 - Essential (primary) hypertension Status: Acute Assessment and Plan: stable continue home medication norvasc adjust as indicated Discharge continue home medication DS: Summary Hospital Course Hospital Course: this is a 67-year? male that came to the hospital due to hypoxia was found to have pneumonia with blood clots right lung requiring oxygen.? Patient has a history of hypertension, type 2 diabetes, skin cancer, back pain, and weakness.? Patient states that he has has severe back pain and pain patient is more back pain than usual and was related to his shortness of breath associated due to the back pain.? Patient lives home with his states that he does do a lot a walking as he does have shortness of breath, back pain.? Patient was seen by pain management who gets injections unsure what is actually to his back and he states that he has been attempting to try to lose weight at this time patient is requiring 3 L of oxygen per nasal cannula.? patient will discharge home with 2 L oxygen with activity. The patient denies SOB, CP, palpitation, extremity numbness, lightheadedness, dizziness, constipation, diarrhea, chills, or fever. Time Spent with Patient Time attestation: Total time spent providing and/or coordinating discharge services: Exam Narrative: GENERAL:Well-appearing,obese , and in no acute distress. HEAD:Normocephalic, atraumatic. EYES: PERRLA ENT: Nares clear, no rhinorrhea or epistaxis. Mucous membranes moist. CHEST: Clear to diminished auscultation. No respiratory distress. HEART: Regular rate and rhythm. Normal peripheral pulses. ABDOMEN: Soft, nontender, nondistended, normal active bowel sounds. EXTREMITIES: decreased range of motion.right leg edema. SKIN: Warm, dry, no rash. NEURO: No focal deficits. Alert and oriented x3. DS: Data Data Completed and Pending Labs on day of discharge: Labs from last 24 hours 02/05/23 05:12 WBC 11.4 H RBC 3.90 L Hgb 12.2 L Hct 38.4 MCV 98.5 MCH 31.3 H MCHC 31.8 L RDW 15.5 H Plt Count 310 MPV 9.1 Sodium 139 Potassium 4.7 Chloride 104 Carbon Dioxide 28 Anion Gap 7 L BUN 23 H Creatinine 0.82 Estim Creat Clear Calc 110 Estimated GFR > 60 Glucose 186 H Calculated Osmol
--- NOTE | 2023-02-05 13:00 | PC.NURSE ---
Patient discharging home. IV site removed, tip intact. Dressing applied to site. All discharge instructions and education reviewed with patient and . Both parties state understanding. Education done with and patient about portable oxygen and how to use it, portable tank from [facility] sent home with patient. Patient transferred via wheelchair to front door accompanied by this nurse. Left via private vehicle with . Home medication returned. All belongings gathered and sent home with patient.
--- NOTE | 2023-02-06 11:05 | PC.NURSE ---
Pt states he received and understood the discharge instructions. Pt also states you guys did a good job .
== END 2023-02-05 13:00 | disposition home or self-care (01) | DRG 175 ==
LOC: CHSED 14:32 → CHS2ND 14:36
PROVIDERS: Nurse Practitioner; Nurse Practitioner Family; Admitting Provider Internal Medicine; Emergency Provider Emergency Medicine; PCP Internal Medicine; Visit Provider Internal Medicine
DX: I26.99 Other pulmonary embolism without acute cor pulmonale (principal); J18.9 Pneumonia, unspecified organism; I10 Essential (primary) hypertension; I25.10 Atherosclerotic heart disease of native coronary artery without angina pectoris; I83.93 Asymptomatic varicose veins of bilateral lower extremities; E11.9 Type 2 diabetes mellitus without complications; E78.2 Mixed hyperlipidemia; M17.11 Unilateral primary osteoarthritis, right knee; M48.061 Spinal stenosis, lumbar region without neurogenic claudication; M47.26 Other spondylosis with radiculopathy, lumbar region; G47.33 Obstructive sleep apnea (adult) (pediatric)
CPT/HCPCS: 36415; 36600; 71045; 71046; 71275; 80048; 80053; 82805; 83605; 83735; 83880; 84484; 85025; 85027; 85380; 85610; 85730; 87040; 87637; 93005; 94618; 94640; 96361; 96365; 96366; 96367; 96368; 96372; 96375; 96376; 97161; 99285; A9270; G0378; J0456; J0696; J1650; J2060; J2920; J7030; Q9967

== ENCOUNTER 2023-02-17 11:21 | Outpatient (CLI) | payer MEDICARE, SELFPAY ==
--- NOTE | ~2023-02-17 | XR_ITS ---
EXAMINATION: XR chest 2V 02/17/2023 11:51 INDICATION: Pneumonia. PROCEDURE: 2 view chest COMPARISON: 02/02/2023 FINDINGS: The lungs are clear. Interval resolution of bilateral airspace disease. There is stable api nia pleural thickening on the left. The cardiomediastinal silhouette is within normal limits. There are no pleural effusions. There is no pneumothorax suspected. IMPRESSION: 1: NO ACUTE CARDIOPULMONARY DISEASE. Reviewed, dictated and finalized at location []
[2023-02-17 11:38] LABS: Basophils Absolute Auto 0.04 K/mm3 (0.00-0.10); Basophils Percent Auto 0.6 % (0.0-1.0); Eosinophils Absolute Auto 0.07 K/mm3 (0.02-0.50); Eosinophils Percent Auto 1.1 % (1.0-6.0); Hematocrit 40.2 % (37.0-46.0); Hemoglobin 12.9 g/dL (12.4-15.3); Immature Granulocyte Absolute 0.03 K/mm3 (0.00-0.00); Immature Granulocyte Percent A 0.5 % (0.0-0.0); Lymphocytes Absolute Auto 1.71 K/mm3 (1.10-4.50); Lymphocytes Percent Auto 26.9 % (18.0-42.0); Mean Corpuscular HGB Conc 32.1 g/dL (32.0-36.0); Mean Corpuscular Hemoglobin 31.8 pg (27.0-31.0); Mean Platelet Volume 7.7 fl (8.7-11.0); Monocytes Absolute Auto 0.62 K/mm3 (0.10-0.90); Monocytes Percent Auto 9.7 % (2.0-11.0); Neutrophils Absolute Auto 3.9 K/mm3 (1.7-7.2); Neutrophils Percent Auto 61.2 % (50.0-70.0); Platelet Count Result 310 K/mm3 (150-420); Red Blood Count 4.06 M/mm3 (4.70-6.10); Red Cell Distribution Width 14.5 % (11.6-14.4); White Blood Count 6.4 K/mm3 (4.8-10.8)
[2023-02-17 11:54] LABS: Appearance Urine Clear (Clear); Bilirubin Urine Negative (Negative); Blood Urine Negative (Negative); Color Urine Light Yellow (Yellow); Glucose Urine UA Negative (Negative); Ketones Urine Negative (Negative); Leukocyte Esterase Ur Negative (Negative); Nitrate Urine Negative (Negative); Protein Urine Negative (Negative); Specific Grav Ur <= 1.005 (1.010-1.020); Urobilinogen Urine 0.2 mg/dL (0.2-1.0)
[2023-02-17 11:55] LABS: Add Urine Microscopic? NO
[2023-02-17 12:37] LABS: Alanine Aminotransferase 35 U/L (16-63); Alkaline Phosphatase 83 U/L (46-116); Anion Gap 6 mmol/L (8-16); Aspartate Amino Transferase 19 U/L (15-37); Bilirubin,Total 0.3 mg/dL (0.00-1.00); Blood Urea Nitrogen 10 mg/dL (7-18); Calcium 8.8 mg/dL (8.5-10.1); Carbon Dioxide 31 mmol/L (21-32); Chloride 102 mmol/L (98-108); Estimated Glomerular Filt Rate > 60; Glucose 100 mg/dL (70-99); NT Pro B Type Natriuretic Pept 37 pg/mL (0-125); Osmolality Calculated 287 mOsm/kg (285-295); Sodium 139 mmol/L (136-145); Total Protein 6.7 g/dL (6.4-8.2)
== END 2023-02-17 11:22 | disposition home or self-care (01) ==
PROVIDERS: PCP Internal Medicine; Visit Provider Internal Medicine
DX: J18.9 Pneumonia, unspecified organism (principal); D64.9 Anemia, unspecified; I50.9 Heart failure, unspecified
CPT/HCPCS: 36415; 71046; 80053; 81003; 83880; 85025

== ENCOUNTER 2023-04-03 08:03 | Outpatient (CLI) | payer MEDICARE, SELFPAY ==
[2023-04-03 08:22] LABS: Basophils Absolute Auto 0.03 K/mm3 (0.00-0.10); Basophils Percent Auto 0.5 % (0.0-1.0); Eosinophils Absolute Auto 0.13 K/mm3 (0.02-0.50); Hematocrit 41.3 % (37.0-46.0); Hemoglobin 13.4 g/dL (12.4-15.3); Immature Granulocyte Absolute 0.02 K/mm3 (0.00-0.00); Immature Granulocyte Percent A 0.3 % (0.0-0.0); Lymphocytes Percent Auto 27.6 % (18.0-42.0); Mean Corpuscular HGB Conc 32.4 g/dL (32.0-36.0); Mean Corpuscular Hemoglobin 31.2 pg (27.0-31.0); Mean Corpuscular Volume 96.3 fL (78.0-102.0); Mean Platelet Volume 8.1 fl (8.7-11.0); Monocytes Absolute Auto 0.47 K/mm3 (0.10-0.90); Monocytes Percent Auto 7.2 % (2.0-11.0); Neutrophils Absolute Auto 4.1 K/mm3 (1.7-7.2); Neutrophils Percent Auto 62.4 % (50.0-70.0); Platelet Count Result 266 K/mm3 (150-420); Red Blood Count 4.29 M/mm3 (4.70-6.10); Red Cell Distribution Width 14.6 % (11.6-14.4); White Blood Count 6.5 K/mm3 (4.8-10.8)
[2023-04-03 08:48] LABS: Hemoglobin A1C 6.2 % (<5.7)
[2023-04-03 09:18] LABS: Alanine Aminotransferase 22 U/L (16-63); Albumin Level 3.5 g/dL (3.4-5.0); Alkaline Phosphatase 96 U/L (46-116); Anion Gap 6 mmol/L (8-16); Aspartate Amino Transferase 14 U/L (15-37); Bilirubin,Total 0.4 mg/dL (0.00-1.00); Blood Urea Nitrogen 14 mg/dL (7-18); Carbon Dioxide 32 mmol/L (21-32); Chloride 105 mmol/L (98-108); Creatine Kinase 70 U/L (39-308); Estimated Glomerular Filt Rate > 60; Glucose 115 mg/dL (70-99); Osmolality Calculated 297 mOsm/kg (285-295); Potassium 4.1 mmol/L (3.5-5.1); Prostate Specific Antigen 3.8 ng/mL (< OR = 4.0); Sodium 143 mmol/L (136-145); Total Protein 6.9 g/dL (6.4-8.2); Uric Acid 4.6 mg/dL (3.5-7.2)
[2023-04-03 10:12] LABS: Appearance Urine Clear (Clear); Bilirubin Urine Negative (Negative); Blood Urine Negative (Negative); Color Urine Light Yellow (Yellow); Glucose Urine UA Negative (Negative); Ketones Urine Negative (Negative); Leukocyte Esterase Ur Negative (Negative); Nitrate Urine Negative (Negative); Protein Urine Negative (Negative); Specific Grav Ur 1.015 (1.010-1.020); Urobilinogen Urine 0.2 mg/dL (0.2-1.0)
[2023-04-03 10:13] LABS: Add Urine Microscopic? NO
[2023-04-03 10:20] LABS: Creatinine Urine 86.88 mg/dL (40-278); MALB Creatinine Ratio 14.9 mg/g (0-30); Microalbumin Urine Random < 13.0 mg/L
[2023-04-04 11:03] LABS: Cholesterol 135 mg/dL (0-200); HDL Direct 40 mg/dL (40-60); LDL Cholesterol Calculated 73 mg/dL (<130); Triglycerides 112 mg/dL (0-150)
== END 2023-04-03 08:04 | disposition home or self-care (01) ==
LOC: CHSLAB 08:06
PROVIDERS: PCP Internal Medicine; Visit Provider Internal Medicine
DX: E79.0 Hyperuricemia without signs of inflammatory arthritis and tophaceous disease (principal); I10 Essential (primary) hypertension; E78.2 Mixed hyperlipidemia; E11.65 Type 2 diabetes mellitus with hyperglycemia; Z12.5 Encounter for screening for malignant neoplasm of prostate
CPT/HCPCS: 36415; 80053; 80061; 81003; 82043; 82550; 83036; 84153; 84550; 85025; G0103

== ENCOUNTER 2023-05-05 08:15 | Outpatient (CLI) | payer MEDICARE, SELFPAY ==
--- NOTE | 2023-05-05 08:22 | EST_ITS ---
Patient Info Name: Deion Lopez Age: 67 years : 1955 Gender: Male Ht: 68 in Wt: 300 lbs BSA: 2.63 m2 HR: 83 bpm BP: 145 / 79 mmHg Heart Rhythm: Sinus Rhythm Technical Quality: Good Exam Date: 05/05/2023 9:40 AM Exam Location: [facility] EM[facility] Patient Status: Outpatient Admit Date: 05/05/2023 Staff Ordering Physician: Anastacio Johnson MD Attending Provider: Anastacio Johnson MD Exam Type: CA stress case w NM Study Info A regadenoson stress test was performed. History/Risk Factors Dyslipidemia: Yes Obesity: Yes Diabetes Mellitus: Type II Family History: Premature Coronary Artery Disease Summary 1. 1. Negative lexiscan stress test for ischemic ST changes by ECG criteria. 2. 2. Baseline hypertension. 3. 3. Nuclear scan to follow and will be reported separately. Please correlate with it. Protocol: LEXISCAN Stress ECG Details Stage: REST Duration (min): 4 min : 13 sec HR (bpm): 85 SBP (mmHg): 145 DBP (mmHg): 79 Stage: REST Duration (min): 9 min : 51 sec HR (bpm): 88 SBP (mmHg): 145 DBP (mmHg): 79 Stage: STAGE 1 Duration (min): 0 min : 12 sec HR (bpm): 88 SBP (mmHg): 145 DBP (mmHg): 79 Stage: RECOVERY Duration (min): 0 min : 47 sec HR (bpm): 87 SBP (mmHg): 145 DBP (mmHg): 79 Stage: RECOVERY Duration (min): 1 min : 47 sec HR (bpm): 101 SBP (mmHg): 154 DBP (mmHg): 86 Stage: RECOVERY Duration (min): 2 min : 47 sec HR (bpm): 97 SBP (mmHg): 154 DBP (mmHg): 86 Stage: RECOVERY Duration (min): 3 min : 47 sec HR (bpm): 98 SBP (mmHg): 157 DBP (mmHg): 90 Stage: RECOVERY Duration (min): 4 min : 47 sec HR (bpm): 97 SBP (mmHg): 148 DBP (mmHg): 68 Stage: RECOVERY Duration (min): 5 min : 23 sec HR (bpm): 99 SBP (mmHg): 148 DBP (mmHg): 68 Rest HR: 88 bpm Peak HR: 102 bpm Rest Sys BP: 145 mmHg Peak Sys BP: 157 mmHg Max Pred HR: 155 bpm % Max Pred HR: 66 % Target HR: 132 bpm Max RPP: 16,014 bpm*mmHg BP Response: Normal blood pressure response Termination Reason: Completed Protocol Cardiac Symptoms: None Total Time: 0 min : 12 sec Rest Conde BP: 79 mmHg Peak Conde BP: 90 mmHg Total Dose: 0.4 mg Resting ECG Sinus rhythm, BRWP. Stress ECG No abnormal ST/T wave changes. Arrhythmias No arrhythmias were observed during the examination. Report Signatures
--- NOTE | 2023-05-05 14:09 | WPDCARIOSTRE ---
Nuclear Stress Test INDICATIONS Indications: Dyspnea PROCEDURE Procedure Performed: Myocardial Perf Spect-Multi Procedure: Patient underwent a lexiscan stress test and immediately was injected with 30.5 mCi of cardiolyte. Multiple tomographic images were obtained. These are of good quality. There is evidence of moderate size, moderate severity apical perfusion defect during stress imaging. a separate resting images were obtained after patient was injected with 10 mCi of cardiolyte. Multiple tomographic images were obtained. These are of good quality. There is evidence of moderate size, moderate severity apical perfusion defect during rest imaging. CONCLUSION Conclusion: 1. Myocardial perfusion imaging demonstrating a fixed apical perfusion defect suggestive of attenuation artifact. 2. No reversible ischemia. 3. Left ventriculogram demonstrates normal measured ejection fraction of 70% with no wall motion abnormalities. 4. TID score 0.97 is normal.
== END 2023-05-05 08:16 | disposition home or self-care (01) ==
LOC: CHSCARD 08:16
PROVIDERS: PCP Internal Medicine; Visit Provider Internal Medicine
DX: R06.00 Dyspnea, unspecified (principal); R94.31 Abnormal electrocardiogram [ECG] [EKG]
CPT/HCPCS: 78452; 93017; A9502; J2785

== ENCOUNTER 2023-05-19 10:15 | Outpatient (CLI) | payer MEDICARE, SELFPAY ==
--- NOTE | 2023-05-19 10:22 | ECHO_ITS ---
Patient Info Name: Deion Lopez Age: 67 years : 1955 Gender: Male Ht: 68 in Wt: 290 lbs BSA: 2.58 m2 HR: 82 bpm BP: 176 / 96 mmHg Heart Rhythm: Sinus Rhythm Technical Quality: Poor Exam Date: 05/19/2023 10:14 AM Exam Location: [facility] Patient Status: Outpatient Admit Date: 05/19/2023 Staff Ordering Physician: Anastacio Johnson MD Cloth Mercerizer Back Tender: [facility] Attending Provider: Anastacio Johnson MD Referring Physician: Alex STILL; Exam Type: CA echo dop color flow w con Study Info Indications - Dyspnea , ABN EKG Complete two-dimensional, color flow and Doppler transthoracic echocardiogram is performed with contrast to opacify the left ventricle and to improve the deliniation of the left ventricle endocardial borders. Reason for Poor Study: poor echocardiographic windows History/Risk Factors Dyslipidemia: Yes Obesity: Yes Diabetes Mellitus: Type II Family History: Premature Coronary Artery Disease Summary 1. Technically suboptimal study due to poor sonographic images. 2. Definity contrast administered improved wall motion interpretation. 3. Left ventricular chamber dimension is normal. 4. Left ventricular systolic function is normal, estimated at 60-65%. 5. There is mild concentric increased left ventricular wall thickness. 6. The left ventricular diastolic function is grade II diastolic dysfunction. 7. E/e' 13 is mildly elevated. 8. Left atrial chamber dimension is mildly enlarged. 9. No pulmonary hypertension, estimated pulmonary arterial systolic pressure is 8 mmHg. Recommendations * Continue medical therapy for diabetes. Left Ventricle E/e' 13 is mildly elevated. Technically suboptimal study due to poor sonographic images. Definity contrast administered improved wall motion interpretation. Left ventricular chamber dimension is normal. Left ventricular systolic function is normal, estimated at 60-65%. There is mild concentric increased left ventricular wall thickness. The left ventricular diastolic function is grade II diastolic dysfunction. Right Ventricle Right ventricular chamber dimension is normal. Right ventricular systolic function is normal. Left Atria Left atrial chamber dimension is mildly enlarged. Right Atria Right atrial chamber dimension is normal. Aortic Valve The aortic valve is not well visualized. Cannot determine number of aortic valve leaflets. There is no aortic valve stenosis based on valve area and gradients. There is no aortic valve regurgitation. Pulmonic Valve There is no pulmonic regurgitation. Mitral Valve There is no mitral valve stenosis. There is no mitral valve regurgitation. Tricuspid Valve There is no tricuspid valve regurgitation. No pulmonary hypertension, estimated pulmonary arterial systolic pressure is 8 mmHg. Pericardium/Pleural There is no pericardial effusion. Inferior Vena Cava Normal inferior vena cava with >50% collapse upon inspiration consistent with normal right atrial pressure, 5 mmHg. Aorta The aortic root size at the sinus of Valsalva is normal. Left Ventricular Outflow Tract Name Value Normal LVOT 2D LVOT Diameter 2.03 cm LVOT Doppler LVOT Peak Velocity 129.01 cm/s
== END 2023-05-19 10:16 | disposition home or self-care (01) ==
LOC: CHSIMG 10:18
PROVIDERS: PCP Internal Medicine; Visit Provider Internal Medicine
DX: R06.00 Dyspnea, unspecified (principal); R94.31 Abnormal electrocardiogram [ECG] [EKG]; I51.7 Cardiomegaly
CPT/HCPCS: C8929; Q9957

== ENCOUNTER 2023-08-19 08:43 | Outpatient (CLI) | payer MEDICARE, SELFPAY ==
--- NOTE | ~2023-08-19 | CT_ITS ---
Clinical Indication: Pulmonary embolus follow-up CT Scan of the Chest with Contrast: Technique: Contiguous sections were acquired throughout the chest after intravenous administration of 100 cc of Omnipaque 350. Dose reduction technique was used on this scan by utilizing automated expos ure control and iterative reconstruction technique. The dose-length product (DLP) was 1065.66 mGy-cm. COMPARISON: 01/25/2023 Findings: There is no evidence of any significant mediastinal, hilar or axillary lymphadenopathy. There is no f illing defect in the pulmonary arterial tree to suggest pulmonary embolus. There is no evidence of ao rtic dissection or aneurysm. There is no evidence of pleural or pericardial effusion. There is mild bronchiolectasis and scarring at the posterior medial left lung base. Right lung clear. Images through the upper abdomen reveal no abnormalities. Impression: No evidence of pulmonary embolus, aortic dissection, or aortic aneurysm. Previously noted segmental p ulmonary emboli in the right lung are resolved. Mild bronchiolectasis and scarring at the posterior medial left lung base. Reviewed, dictated and finalized at location . NG PARTS SEWER Impression: No evidence of pulmonary embolus, aortic dissection, or aortic aneurysm. Previo usly noted segmental pulmonary emboli in the right lung are resolved. Mild bronchiolectasis and scarring at the posterior medial left lung base.
[2023-08-19 09:06] LABS: Estimated Glomerular Filt Rate 60
== END 2023-08-19 08:44 | disposition home or self-care (01) ==
LOC: CHSIMG 08:44
PROVIDERS: PCP Internal Medicine; Visit Provider Internal Medicine
DX: I26.99 Other pulmonary embolism without acute cor pulmonale (principal); J47.9 Bronchiectasis, uncomplicated
CPT/HCPCS: 71275; Q9967

== ENCOUNTER 2023-10-03 08:02 | Outpatient (CLI) | payer MEDICARE, SELFPAY ==
[2023-10-03 08:17] LABS: Appearance Urine Clear (Clear); Basophils Absolute Auto 0.02 K/mm3 (0.00-0.10); Basophils Percent Auto 0.3 % (0.0-1.0); Bilirubin Urine Negative (Negative); Blood Urine Negative (Negative); Color Urine Light Yellow (Yellow); Eosinophils Percent Auto 1.6 % (1.0-6.0); Glucose Urine UA Negative (Negative); Hematocrit 42.2 % (37.0-46.0); Hemoglobin 13.8 g/dL (12.4-15.3); Immature Granulocyte Absolute 0.01 K/mm3 (0.00-0.00); Immature Granulocyte Percent A 0.2 % (0.0-0.0); Ketones Urine Negative (Negative); Leukocyte Esterase Ur Negative (Negative); Lymphocytes Absolute Auto 1.72 K/mm3 (1.10-4.50); Lymphocytes Percent Auto 27.3 % (18.0-42.0); Mean Corpuscular HGB Conc 32.7 g/dL (32.0-36.0); Mean Corpuscular Hemoglobin 30.7 pg (27.0-31.0); Mean Platelet Volume 8.1 fl (8.7-11.0); Monocytes Absolute Auto 0.45 K/mm3 (0.10-0.90); Monocytes Percent Auto 7.2 % (2.0-11.0); Neutrophils Percent Auto 63.4 % (50.0-70.0); Nitrate Urine Negative (Negative); Platelet Count Result 238 K/mm3 (150-420); Protein Urine Negative (Negative); Red Blood Count 4.49 M/mm3 (4.70-6.10); Red Cell Distribution Width 15.3 % (11.6-14.4); Specific Grav Ur 1.015 (1.010-1.020); Urobilinogen Urine 0.2 mg/dL (0.2-1.0); White Blood Count 6.3 K/mm3 (4.8-10.8)
[2023-10-03 08:18] LABS: Add Urine Microscopic? NO
[2023-10-03 08:25] LABS: Creatinine Urine 61.64 mg/dL (40-278); Microalbumin Urine Random < 13.0 mg/L
[2023-10-03 08:38] LABS: Hemoglobin A1C 5.8 % (<5.7)
[2023-10-03 08:54] LABS: Alanine Aminotransferase 24 U/L (16-63); Albumin Level 3.5 g/dL (3.4-5.0); Alkaline Phosphatase 108 U/L (46-116); Anion Gap 8 mmol/L (8-16); Aspartate Amino Transferase 11 U/L (15-37); Bilirubin,Total 0.4 mg/dL (0.00-1.00); Blood Urea Nitrogen 14 mg/dL (7-18); Calcium 8.5 mg/dL (8.5-10.1); Carbon Dioxide 31 mmol/L (21-32); Chloride 105 mmol/L (98-108); Cholesterol 131 mg/dL (0-200); Creatine Kinase 85 U/L (39-308); Estimated Glomerular Filt Rate > 60; Glucose 107 mg/dL (70-99); HDL Direct 45 mg/dL (40-60); LDL Cholesterol Calculated 69 mg/dL (<130); Osmolality Calculated 298 mOsm/kg (285-295); Potassium 4.3 mmol/L (3.5-5.1); Sodium 144 mmol/L (136-145); Total Protein 6.6 g/dL (6.4-8.2); Triglycerides 84 mg/dL (0-150); Uric Acid 3.5 mg/dL (3.5-7.2)
== END 2023-10-03 08:03 | disposition home or self-care (01) ==
LOC: CHSLAB 08:05
PROVIDERS: PCP Internal Medicine; Visit Provider Internal Medicine
DX: I10 Essential (primary) hypertension (principal); E11.9 Type 2 diabetes mellitus without complications; E78.2 Mixed hyperlipidemia; E79.0 Hyperuricemia without signs of inflammatory arthritis and tophaceous disease; M17.0 Bilateral primary osteoarthritis of knee
CPT/HCPCS: 36415; 80053; 80061; 81003; 82043; 82550; 83036; 84550; 85025

== ENCOUNTER 2024-04-01 08:28 | Outpatient (CLI) | payer MEDICARE, SELFPAY ==
[2024-04-01 08:55] LABS: Basophils Absolute Auto 0.04 K/mm3 (0.00-0.10); Basophils Percent Auto 0.7 % (0.0-1.0); Eosinophils Absolute Auto 0.19 K/mm3 (0.02-0.50); Eosinophils Percent Auto 3.3 % (1.0-6.0); Hematocrit 44.5 % (37.0-46.0); Immature Granulocyte Absolute 0.01 K/mm3 (0.00-0.00); Immature Granulocyte Percent A 0.2 % (0.0-0.0); Lymphocytes Absolute Auto 1.74 K/mm3 (1.10-4.50); Lymphocytes Percent Auto 30.5 % (18.0-42.0); Mean Corpuscular HGB Conc 33.7 g/dL (32-36); Mean Corpuscular Hemoglobin 31.6 pg (27.0-31.0); Mean Corpuscular Volume 93.9 fL (78.0-102.0); Mean Platelet Volume 8.3 fl (8.7-11.0); Monocytes Absolute Auto 0.51 K/mm3 (0.10-0.90); Monocytes Percent Auto 8.9 % (2.0-11.0); Neutrophils Absolute Auto 3.21 K/mm3 (1.70-7.20); Neutrophils Percent Auto 56.4 % (50.0-70.0); Platelet Count Result 206 K/mm3 (150-420); Red Blood Count 4.74 M/mm3 (4.70-6.10); Red Cell Distribution Width 14.3 % (11.6-14.4); White Blood Count 5.7 K/mm3 (4.8-10.8)
[2024-04-01 08:56] LABS: Appearance Urine Clear (Clear); Bilirubin Urine Negative (Negative); Blood Urine Negative (Negative); Color Urine Light Yellow (Yellow); Glucose Urine UA Negative (Negative); Ketones Urine Negative (Negative); Leukocyte Esterase Ur Negative (Negative); Nitrate Urine Negative (Negative); Protein Urine Negative (Negative); Specific Grav Ur 1.015 (1.010-1.020); Urobilinogen Urine 0.2 mg/dL (0.2-1.0)
[2024-04-01 09:05] LABS: Add Urine Microscopic? NO
[2024-04-01 09:16] LABS: Hemoglobin A1C 5.6 % (<5.7)
[2024-04-01 09:44] LABS: Alanine Aminotransferase 28 U/L (16-63); Albumin Level 3.8 g/dL (3.4-5.0); Alkaline Phosphatase 96 U/L (46-116); Anion Gap 5 mmol/L (4-12); Aspartate Amino Transferase 18 U/L (15-37); Bilirubin,Total 0.4 mg/dL (0.00-1.00); Blood Urea Nitrogen 15 mg/dL (7-18); Calcium 9.1 mg/dL (8.5-10.1); Carbon Dioxide 32 mmol/L (21-32); Chloride 103 mmol/L (98-108); Cholesterol 139 mg/dL (0-200); Creatine Kinase 102 U/L (39-308); Estimated Glomerular Filt Rate > 60; Free T3 2.02 pg/mL (2.18-3.98); Free T4 Free Thyroxine 0.93 ng/dL (0.76-1.46); Glucose 105 mg/dL (70-99); HDL Direct 41 mg/dL (40-60); LDL Cholesterol Calculated 76 mg/dL (<130); Osmolality Calculated 290 mOsm/kg (285-295); Potassium 4.3 mmol/L (3.5-5.1); Prostate Specific Antigen 5.5 ng/mL (< OR = 4.0); Sodium 140 mmol/L (136-145); Thyroid Stimulating Hormone 1.74 uIU/mL (0.36-3.74); Triglycerides 110 mg/dL (0-150)
== END 2024-04-01 08:29 | disposition home or self-care (01) ==
LOC: CHSLAB 08:30
PROVIDERS: PCP Internal Medicine; Visit Provider Internal Medicine
DX: E79.0 Hyperuricemia without signs of inflammatory arthritis and tophaceous disease (principal); I10 Essential (primary) hypertension; E78.2 Mixed hyperlipidemia; E11.9 Type 2 diabetes mellitus without complications; R53.82 Chronic fatigue, unspecified; Z12.5 Encounter for screening for malignant neoplasm of prostate
CPT/HCPCS: 36415; 80053; 80061; 81003; 82550; 83036; 84153; 84439; 84443; 84481; 85025; G0103

== ENCOUNTER 2024-04-16 12:05 | Outpatient (CLI) | payer MEDICARE, SELFPAY ==
--- NOTE | ~2024-04-16 | US_ITS ---
EXAMINATION:US venous doppler LE RT INDICATION:Right leg edema TECHNIQUE: Multiple grayscale, color flow and Doppler images of the right lower extremity deep venous systems were obtained and reviewed. COMPARISON:02/01/2016 FINDINGS: The common femoral, superficial femoral and popliteal veins demonstrate normal respiratory variation, augmentation and compressibility. Color flow is also seen within the posterior tibial, pe roneal, greater saphenous and profunda veins. IMPRESSION: 1: No lower extremity deep venous thrombosis. Reviewed, dictated and finalized at location B.
--- NOTE | ~2024-04-16 | US_ITS ---
US arterial ankle brachial ind INDICATION: Peripheral arterial disease TECHNIQUE: Segmental pressures and plethysmographic and Doppler waveforms of the brachial and lower e xtremity arteries were obtained. COMPARISON: None. FINDINGS: Right and left brachial artery pressures of 165 mm Hg and 167 mm Hg, respectively, are concordant (no rmal difference <= 30 mmHg). The right ankle-brachial index (MARY) is 1.17 (normal >= 0.9-1.0). The right great toe-brachial index (TBI) is 1.14 (normal >= 0.60). The left MARY is 1.14. The left TBI is 1.22. IMPRESSION: 1. Normal ankle-brachial indices. Reviewed, dictated and finalized at location B.
== END 2024-04-16 12:06 | disposition home or self-care (01) ==
LOC: CHSIMG 12:07
PROVIDERS: PCP Internal Medicine; Visit Provider Internal Medicine
DX: I73.9 Peripheral vascular disease, unspecified (principal); M79.89 Other specified soft tissue disorders
CPT/HCPCS: 93922; 93971

== ENCOUNTER 2024-09-29 08:20 | Outpatient (CLI) | payer MEDICARE, SELFPAY ==
[2024-09-29 08:37] LABS: Basophils Absolute Auto 0.04 K/mm3 (0.00-0.10); Basophils Percent Auto 0.7 % (0.0-1.0); Eosinophils Absolute Auto 0.31 K/mm3 (0.02-0.50); Eosinophils Percent Auto 5.7 % (1.0-6.0); Hematocrit 44.6 % (37.0-46.0); Hemoglobin 14.7 g/dL (12.4-15.3); Immature Granulocyte Absolute 0.01 K/mm3 (0.00-0.00); Immature Granulocyte Percent A 0.2 % (0.0-0.0); Lymphocytes Absolute Auto 1.94 K/mm3 (1.10-4.50); Lymphocytes Percent Auto 35.7 % (18.0-42.0); Mean Corpuscular Hemoglobin 30.3 pg (27.0-31.0); Mean Platelet Volume 8.2 fl (8.7-11.0); Monocytes Absolute Auto 0.56 K/mm3 (0.10-0.90); Monocytes Percent Auto 10.3 % (2.0-11.0); Neutrophils Absolute Auto 2.57 K/mm3 (1.70-7.20); Neutrophils Percent Auto 47.4 % (50.0-70.0); Platelet Count Result 210 K/mm3 (150-420); Red Blood Count 4.85 M/mm3 (4.70-6.10); Red Cell Distribution Width 14.1 % (11.6-14.4); White Blood Count 5.4 K/mm3 (4.8-10.8)
[2024-09-29 08:44] LABS: Creatinine Urine 144.78 mg/dL (40-278); MALB Creatinine Ratio 8.9 mg/g (0-30); Microalbumin Urine Random < 13.0 mg/L
[2024-09-29 08:45] LABS: Hemoglobin A1C 5.7 % (<5.7)
[2024-09-29 08:51] LABS: Add Urine Microscopic? NO; Appearance Urine Clear (Clear); Bilirubin Urine Negative (Negative); Blood Urine Negative (Negative); Color Urine Light Yellow (Yellow); Glucose Urine UA Negative (Negative); Ketones Urine Negative (Negative); Leukocyte Esterase Ur Negative (Negative); Nitrate Urine Negative (Negative); Protein Urine Negative (Negative); Specific Grav Ur 1.015 (1.010-1.020); Urobilinogen Urine 0.2 mg/dL (0.2-1.0)
[2024-09-29 09:30] LABS: Alanine Aminotransferase 32 U/L (16-63); Albumin Level 3.9 g/dL (3.4-5.0); Alkaline Phosphatase 104 U/L (46-116); Anion Gap 7 mmol/L (4-12); Aspartate Amino Transferase 13 U/L (15-37); Bilirubin,Total 0.3 mg/dL (0.00-1.00); Blood Urea Nitrogen 16 mg/dL (7-18); Calcium 9.2 mg/dL (8.5-10.1); Carbon Dioxide 30 mmol/L (21-32); Chloride 103 mmol/L (98-108); Cholesterol 129 mg/dL (0-200); Creatine Kinase 164 U/L (39-308); Estimated Glomerular Filt Rate 53; Glucose 106 mg/dL (70-99); HDL Direct 40 mg/dL (40-60); LDL Cholesterol Calculated 65 mg/dL (<130); Osmolality Calculated 291 mOsm/kg (285-295); Potassium 4.5 mmol/L (3.5-5.1); Sodium 140 mmol/L (136-145); Total Protein 6.8 g/dL (6.4-8.2); Triglycerides 118 mg/dL (0-150); Uric Acid 3.5 mg/dL (3.5-7.2)
--- OUTSIDE RECORDS SUMMARY | 2024-09-30 21:44 | XMS_ITS | Continuity of Care Document ---
Author Organization [facility] Address [address] [place] [address] Phone Care Team Providers Care Address Change Clerk Name Role Phone Josue Ny MD Unavailable Unavailable Allergies, Adverse Reactions, Alerts Substance Reaction Status Criticality No Known Allergies Active No Inform ation Medications Medication Instructions Dosage Effective Dates (start - stop) Status Comments losartan 100 mg tablet take 1 tablet by oral route every day 100 MG - Active carvedilol 25 mg tablet take 1 tablet by oral route every day with food 25 MG - Active meloxicam 15 mg tablet take 1 tablet by oral route every day 15 MG - Active fenofibrate 54 mg tablet take 1 tablet by oral route every day 54 MG - Active allopurinol 300 mg tablet take 1 tablet by oral route every day 300 MG - Active omeprazole 40 mg capsule,delayed release take 1 capsule by oral route every day before a meal 40 MG - Active tamsulosin 0.4 mg capsule take 1 capsule by oral route every day 1/2 hour following the same meal each day 0.4 MG - Active amlodipine 5 mg tablet take 1 tablet by oral route every day 5 MG - Active Procedures Procedure Date Office/outpatient Visit, [facility] Advance Directives Directive Yes / No Effective Date File Name No Information Encounters Encounter Description Practice Location Reason(s) For Visit Diagnoses Date Provider Providers Copied on Encounter Office/outpa tient Visit, [facility], [address], [place], [place], [address], [place] tel:[phone] [facility] Professional different size of pupils (chief complaint) Age-related nuclear cataract, bilateralPingu ecula, bilateralTonic pupillary reaction of right eye Jun-2 0 Anant Salas. [address] [facility], [address], [place], [place], [address], [place]. tel:[phone] Referring Provider: Manuel El OD, [facility] [address] [facility], [place], [address]. tel:[phone] Family History Family Member Type Diagnosis Age At Onset Problem Family history of Diabetes m david Payers Payer name Insurance type Covered green party ID Mady lyon(s) [facility] Commercial CI [id number] Social History Type Description Quantity Date Captured [...]
== END 2024-09-29 08:21 | disposition home or self-care (01) ==
LOC: CHSLAB 08:22
PROVIDERS: PCP Internal Medicine; Visit Provider Internal Medicine
DX: E11.65 Type 2 diabetes mellitus with hyperglycemia (principal); R97.20 Elevated prostate specific antigen [PSA]; E78.2 Mixed hyperlipidemia; I10 Essential (primary) hypertension; E79.0 Hyperuricemia without signs of inflammatory arthritis and tophaceous disease
CPT/HCPCS: 36415; 80053; 80061; 81003; 82043; 82550; 83036; 84550; 85025

== ENCOUNTER 2024-10-06 15:18 | Outpatient (CLI) | payer MEDICARE, SELFPAY ==
--- NOTE | ~2024-10-06 | XR_ITS ---
EXAM: XR thoracic spine 3V DATE: 10/06/2024 15:48 HISTORY: L thoracic/LUMBAR back pain,CHRONIC-WORSENING,NKI . COMPARISON: CTPA 08/19/2023. FINDINGS: Vertebral body alignment intact. Mild anterior wedge deformity at T7 and T8, unchanged. No disc space narrowing. Moderate multilevel disc space narrowing and marginal osteophytosis including large bridging lateral osteophytes and flowing ossification of the anterior longitudinal ligament. Vi sualized lung parenchyma is clear. IMPRESSION: Mild stable compression deformities at T7 and T8. Moderate multilevel degenerative disc d isease. Changes of DISH. Reviewed, dictated and finalized at location K. OMER ACCOUNTS ADVISOR IMPRESSION: Mild stable compression deformities at T7 and T8. Moderate multilev el degenerative disc disease. Changes of DISH.
--- NOTE | ~2024-10-06 | XR_ITS ---
XR lumbar spine 2-3V 10/06/2024 15:48 Indication: Low back pain Procedure: 3 views lumbar spine Comparison: 10/31/2022 Findings: There is significant loss of disc height at all lumbar levels. There is severe facet hypert rophy at L4-5 and L5-S1. There is grade 1 degenerative spondylolisthesis at L4-5. No acute fracture o r traumatic malalignment. There are prominent bridging osteophytes at multiple levels. Sacral foramen are symmetric. Impression: 1: Severe cervical spondylosis. Reviewed, dictated and finalized at location A. ID INTERN Impression: 1: Severe cervical spondylosis.
--- OUTSIDE RECORDS SUMMARY | 2024-10-06 16:10 | XMS_ITS | Continuity of Care Document ---
Author Organization [facility] Address [address] [place] [address] Phone Care Team Providers Care Cell Operation Supervisor Name Role Phone Josue Ny MD Unavailable Unavailable Allergies, Adverse Reactions, Alerts Substance Reaction Status Criticality No Known Allergies Active No Inform ation Medications Medication Instructions Dosage Effective Dates (start - stop) Status Comments carvedilol 25 mg tablet take 1 tablet by oral route every day with food 25 MG - Active losartan 100 mg tablet take 1 tablet by oral route every day 100 MG - Active meloxicam 15 mg tablet [...] - Active Procedures Procedure Date Office/outpatient Visit, [facility] Advance Directives Directive Yes / No Effective Date File Name No Information Encounters Encounter Description Practice Location Reason(s) For Visit Diagnoses Date Provider Providers Copied on Encounter Office/outpa tient Visit, [facility], [address], [place], [place], [address], [place] tel:[phone] [facility] Professional different size of pupils (chief complaint) Age-related nuclear cataract, bilateralPingu ecula, bilateralTonic pupillary reaction of right eye Jun-2 0 Anant Salas. [address] [facility], [address], [place], [place], [address], [place]. tel:[phone] Referring Provider: Manuel El OD, [facility] [address] [facility], [place], [address]. tel:[phone] Family History Family Member Type Diagnosis Age At Onset Problem Family history of Diabetes m david Payers Payer name Insurance type Covered constitution party ID Mady lyon(s) [facility] Commercial CI [id number] Social History Type Description Quantity Date Captured [...]
== END 2024-10-06 15:19 | disposition home or self-care (01) ==
PROVIDERS: PCP Internal Medicine; Visit Provider Nurse Practitioner Family
DX: M51.34 Other intervertebral disc degeneration, thoracic region (principal); M53.84 Other specified dorsopathies, thoracic region; M43.02 Spondylolysis, cervical region
CPT/HCPCS: 72072; 72100

== ENCOUNTER 2024-10-19 12:17 | Outpatient (CLI) | payer MEDICARE, SELFPAY ==
--- NOTE | ~2024-10-19 | US_ITS ---
EXAMINATION: US renal BI DATE: 10/19/2024 12:48 INDICATION: Stage I chronic kidney disease and left flank pain TECHNIQUE: Multiple ultrasound grayscale images of the kidneys were obtained. COMPARISON: CT dated 01/13/16 FINDINGS: The kidneys are measured at 7.6 x 2.7 x 2.8 the right and 13.8 x 5.4 x 6.6 cm on the left. Review of prior CT however demonstrates a single horseshoe kidney with fusion across the midline between a larg er left-sided renal moiety and a smaller right-sided moiety correspond to the asymmetry seen in the c urrent study. The midline fused portion of the kidneys is not visualized on the provided ultrasound i mages. The kidneys demonstrate normal echogenicity. Again seen is a lobular contour to the right africa l moiety. There is no hydronephrosis in either the left or right renal moieties. No stones identifie d. The bladder is not visualized. IMPRESSION: 1. 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 Reviewed, dictated and finalized at location A. SPORTATION PROJECT MANAGER IMPRESSION: 1. 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
--- OUTSIDE RECORDS SUMMARY | 2024-10-19 13:18 | XMS_ITS | Continuity of Care Document ---
Author Organization [facility] Address [address] [place] [address] Phone Care Team Providers Care Rail Signal Designer Name Role Phone Josue Ny MD Unavailable [...] - Active Procedures Procedure Date Office/outpatient Visit, [facility] Advance Directives Directive Yes / No Effective Date File Name No Information Encounters Encounter Description Practice Location Reason(s) For Visit Diagnoses Date Provider Providers Copied on Encounter Office/outpa tient Visit, [facility], [address], [place], [place], [address], [place] tel:[phone] [facility] Professional different size of pupils (chief complaint) Age-related nuclear cataract, bilateralPingu ecula, bilateralTonic pupillary reaction of right eye Jun-2 0 Anant Salas. [address] [facility], [address], [place], [place], [address], [place]. tel:[phone] Referring Provider: Manuel El OD, [facility] [address] [facility], [place], [address]. tel:[phone] Family History Family Member Type Diagnosis Age At Onset Problem Family history of Diabetes m david Payers Payer name Insurance type Covered green party ID Mady lyon(s) [facility] Commercial CI [id number] Social History Type Description Quantity Date Captured [...]
== END 2024-10-19 12:18 | disposition home or self-care (01) ==
LOC: CHSIMG 12:19
PROVIDERS: PCP Internal Medicine; Visit Provider Internal Medicine
DX: R10.9 Unspecified abdominal pain (principal); N18.1 Chronic kidney disease, stage 1; Q63.1 Lobulated, fused and horseshoe kidney
CPT/HCPCS: 76775

== ENCOUNTER 2025-03-24 08:08 | Outpatient (CLI) | payer MEDICARE, SELFPAY ==
--- OUTSIDE RECORDS SUMMARY | 2025-03-24 08:13 | XMS_ITS | Continuity of Care Document ---
Author Organization [facility] Address [address] [place] [address] Phone Care Team Providers Care Anchor Operator Name Role Phone Josue Ny MD Unavailable [...] - Active Procedures Procedure Date Office/outpatient Visit, [facility] Advance Directives Directive Yes / No Effective Date File Name No Information Encounters Encounter Description Practice Location Reason(s) For Visit Diagnoses Date Provider Providers Copied on Encounter Office/outpa tient Visit, [facility], [address], [place], [place], [id number], [place] tel:[phone] [facility] Professional different size of pupils (chief complaint) Age-related nuclear cataract, bilateralPingu ecula, bilateralTonic pupillary reaction of right eye Jun-2 0 Anant Salas. [address] [facility], [address], [place], [place], [address], [place]. tel:[phone] Referring Provider: Manuel El OD, [facility] [address] [facility], [place], [address]. tel:[phone] Family History Family Member Type Diagnosis Age At Onset Problem Family history of Diabetes m david Payers Payer name Insurance type Covered democrat ID Mady lyon(s) [facility] Commercial CI [id number] Social History Type Description Quantity Date Captured [...]
[2025-03-24 08:32] LABS: Hematocrit 47.4 % (37.0-46.0); Hemoglobin 15.7 g/dL (12.4-15.3); Mean Corpuscular HGB Conc 33.1 g/dL (32-36); Mean Corpuscular Hemoglobin 31.6 pg (27.0-31.0); Mean Corpuscular Volume 95.4 fL (78.0-102.0); Platelet Count Result 208 K/mm3 (150-420); Red Blood Count 4.97 M/mm3 (4.70-6.10); White Blood Count 6.0 K/mm3 (4.8-10.8)
[2025-03-24 08:35] LABS: Add Urine Microscopic? NO; Appearance Urine Clear (Clear); Glucose Urine UA Negative (Negative); Leukocyte Esterase Ur Negative (Negative); Nitrate Urine Negative (Negative); Specific Grav Ur 1.010 (1.010-1.020)
[2025-03-24 08:43] LABS: Hemoglobin A1C 5.5 % (<5.7)
[2025-03-24 08:52] LABS: MALB Creatinine Ratio 10.3 mg/g (0-30)
[2025-03-24 09:13] LABS: Alanine Aminotransferase 21 U/L (6-50); Albumin Level 4.2 g/dL (3.5-5.1); Alkaline Phosphatase 86 U/L (38-126); Anion Gap 5 mmol/L (4-12); Aspartate Amino Transferase 23 U/L (17-59); Bilirubin,Total 0.6 mg/dL (0.2-1.3); Blood Urea Nitrogen 14 mg/dL (9-20); Calcium 9.4 mg/dL (8.4-10.2); Carbon Dioxide 31 mmol/L (22-30); Chloride 104 mmol/L (98-107); Cholesterol 151 mg/dL (0-200); Creatine Kinase 102 U/L (55-170); Estimated Glomerular Filt Rate > 60; Glucose 101 mg/dL (65-110); HDL Direct 45 mg/dL; Osmolality Calculated 290 mOsm/kg (285-295); Potassium 4.5 mmol/L (3.4-5.0); Sodium 140 mmol/L (137-145); Total Protein 6.8 g/dL (6.3-8.2); Triglycerides 126 mg/dL (<150); Uric Acid 3.6 mg/dL (3.5-8.5)
[2025-03-24 09:29] LABS: Free T4 Free Thyroxine 1.17 ng/dL (0.78-2.19)
[2025-03-24 09:43] LABS: Thyroid Stimulating Hormone 1.630 uIU/mL (0.465-4.680)
== END 2025-03-24 08:09 | disposition home or self-care (01) ==
LOC: CHSLAB 08:11
PROVIDERS: PCP Internal Medicine; Visit Provider Internal Medicine
DX: R60.0 Localized edema (principal); E78.2 Mixed hyperlipidemia; I10 Essential (primary) hypertension; E11.9 Type 2 diabetes mellitus without complications; E79.0 Hyperuricemia without signs of inflammatory arthritis and tophaceous disease; R97.20 Elevated prostate specific antigen [PSA]; R53.82 Chronic fatigue, unspecified
CPT/HCPCS: 36415; 80053; 80061; 81003; 82043; 82550; 83036; 84439; 84443; 84550; 85027

== ENCOUNTER 2025-04-01 11:50 | Outpatient (CLI) | payer MEDICARE, SELFPAY ==
--- NOTE | ~2025-04-01 | XR_ITS ---
EXAM/ PROCEDURE: XR hip RT min 2V - 04/01/2025 12:01 CDT HISTORY: 69 years old Male with right hip pain x3 years, NKI COMPARISON: None available TECHNIQUE: Two view(s) FINDINGS/ IMPRESSION: There are no fractures or dislocations.Joint space narrowing, subchondral sclerosis, subchondral cyst formation and osteophyte formation, compatible with moderate osteoarthritis. Reviewed, dictated and finalized at location A.
--- OUTSIDE RECORDS SUMMARY | 2025-04-01 11:54 | XMS_ITS | Continuity of Care Document ---
Author Organization [facility] Address [address] [place] [address] Phone Care Team Providers Care Safety Clothing And Equipment Developer Name Role Phone Josue Ny MD Unavailable [...] - Active Procedures Procedure Date Office/outpatient Visit, [facility] Advance Directives Directive Yes / No Effective Date File Name No Information Encounters Encounter Description Practice Location Reason(s) For Visit Diagnoses Date Provider Providers Copied on Encounter Office/outpa tient Visit, [facility], [address], [place], [place], [address], [place] tel:[phone] [facility] Professional different size of pupils (chief complaint) Age-related nuclear cataract, bilateralPingu ecula, bilateralTonic pupillary reaction of right eye Jun-2 0 Anant Salas. [address] [facility], [address], [place], [place], [address], [place]. tel:[phone] Referring Provider: Manuel El OD, [facility] [address] [facility], [place], [address]. tel:[phone] Family History Family Member Type Diagnosis Age At Onset Problem Family history of Diabetes m david Payers Payer name Insurance type Covered libertarian ID Mady lyon(s) [facility] Commercial CI [id number] Social History Type Description Quantity Date Captured [...]
== END 2025-04-01 11:51 | disposition home or self-care (01) ==
PROVIDERS: PCP Internal Medicine; Visit Provider Internal Medicine
DX: M25.551 Pain in right hip (principal)
CPT/HCPCS: 73502

== ENCOUNTER 2025-07-15 12:26 | Outpatient (CLI) | payer MEDICARE, SELFPAY ==
--- OUTSIDE RECORDS SUMMARY | 2020-07-03 08:45 | XMS_ITS | Continuity of Care Document ---
Author Organization [facility] Address [address] [place] [address] Phone Care Team Providers Care Nurse Practitioner Physician Assistant Name Role Phone Josue Ny MD Unavailable Unavailable Allergies, Adverse Reactions, Alerts Substance Reaction Status Criticality No Known Allergies Active No Inform ation Medications Medication Instructions Dosage Effective Dates (start - stop) Status Comments amlodipine 5 mg tablet take 1 tablet by oral route every day 5 MG - Active tamsulosin 0.4 mg capsule take 1 capsule by oral route every day 1/2 hour following the same meal each day 0.4 MG - Active omeprazole 40 mg capsule,delayed release take 1 capsule by oral route every day before a meal 40 MG - Active allopurinol 300 mg tablet take 1 tablet by oral route every day 300 MG - Active fenofibrate 54 mg tablet take 1 tablet by oral route every day 54 MG - Active meloxicam 15 mg tablet take 1 tablet by oral route every day 15 MG - Active losartan 100 mg tablet take 1 tablet by oral route every day 100 MG - Active carvedilol 25 mg tablet take 1 tablet by oral route every day with food 25 MG - Active Procedures Procedure Date Office/outpatient Visit, [facility] Advance Directives Directive Yes / No Effective Date File Name No Information Encounters Encounter Description Practice Location Reason(s) For Visit Diagnoses Date Provider Providers Copied on Encounter Office/outpa tient Visit, [facility], [address], [place], [place], [id number], [place] tel:[phone] [facility] Professional different size of pupils (chief complaint) Age-related nuclear cataract, bilateralPingu ecula, bilateralTonic pupillary reaction of right eye Jun-2 0 Anant Salas. [address] [facility], [address], [place], [place], [id number], [place]. tel:[phone] Referring Provider: Manuel El OD, [facility] [address] [facility], [place], [address]. tel:[phone] Family History Family Member Type Diagnosis Age At Onset Problem Family history of Diabetes m david Payers Payer name Insurance type Covered alliance party ID Mady lyon(s) [facility] Commercial CI [id number] Social History Type Description Quantity Date Captured Comments Alcohol Use Details No Caffeine Use Details No Tobacco Use Status Current non-smoker 20 Smoking Status Never smoker Non-Smoking Tobacco Use Details : No Details Available : No Details Available Sex Male Chief Complaint And Reason For Visit From encounter dated '07/03/2020 14:45'. different size of pupils (chief complaint). Description: The 64 year old male presents for evaluation of different size of pupils in the right eye and left eye. Patient denies any problems with his VA or eyes. Patient referring OD wanted patient pupils evaluated per patient. Reason For Referral Reason For Referral No Information Plan Of Treatment Date Type Action Status Patient Education Cataracts: Care Instruc tions completed History Of Present Illness Encounter Date Complaint History Of Prese nt Illness different size of pupils The 64 year old male presents for evaluation of different size of pupils in the right eye and left eye. Patient denies any problems with his VA or eyes. Patient referring OD wanted patient pupils evaluated per patient. Functional Status Date Functional Assessmen t No Information Instructions Date Instruction Additional Infor mation Impression/Plan Assessments Type Assessment Date assessment Age-related nuclear cataract, bi lateral assessment Pinguecula, bilateral 0 assessment Tonic pupillary reaction of righ t eye Patient Care Teams Name Effective Dates (start - stop) Status Members No Information
[2025-07-15 14:23] LABS: Prostate Specific Antigen 5.2 ng/mL (< OR = 4.0)
== END 2025-07-15 12:27 | disposition home or self-care (01) ==
PROVIDERS: PCP Internal Medicine; Visit Provider Urology
DX: R97.20 Elevated prostate specific antigen [PSA] (principal)
CPT/HCPCS: 36415; 84153

== ENCOUNTER 2025-08-25 02:48 | Day surgery (SDC) | payer MEDICARE, SELFPAY ==
--- NOTE | 2025-08-15 07:04 | PM.HPGS ---
History of Present Illness History of Present Illness Consent: Risks, benefits, and alternatives have been discussed and questions answered. Patient agrees to proceed with procedure. Chief complaint: elevated PSA Narrative: Deion Lopez is a 69 year old patient does great Flomax. ?He had a transient PSA elevation that has normalized. ?If it remains normal he can start to follow up annually Addendum Note?(Franco Ho MD; 04/19/2025 7:50 AM) PSA: 4.9 / up slightly again. Repeat PSA 3-months. Addendum Note?(Franco Ho MD; 07/15/2025 4:20 PM) PSA: 5.2 / up again. Will discuss mpMRI Prostate Addendum Note?(Franco Ho MD; 08/15/2025 7:03 AM) 07/27/25: ?mpMRI Prostate: - volume: 28gm ?- PI-RADS 4 right PZ/TZ junction Review of Systems Review of Systems: All systems reviewed & are unremarkable except as noted in HPI and below PMFSH Past Medical History Medical History (Updated 08/15/25 @ 07:05 by Franco Ho MD) History of pulmonary embolus (PE) Morbid obesity Lumbar radiculopathy Lumbar spondylosis Lumbar stenosis Coronary artery disease Arthritis Skin cancer Cellulitis of perineum Pain in left hip Varicose veins of both lower extremities with complications Lobulated, fused and horseshoe kidney Osteoarthritis of right knee Actinic keratosis Right shoulder pain Obstructive sleep apnea Hyperlipemia, mixed Hypertension Type 2 diabetes mellitus Surgical History Surgical History History of carpal tunnel surgery History of arthroscopy of both shoulders History of arthroscopic knee surgery Family History Family History (Updated 07/13/25 @ 14:39 by Aysha Paniagua CMA) Father Family history of gout Family history of diabetes mellitus in first degree relative Family history of heart disease in male family member before age 55 Diabetes mellitus Acute myocardial infarction Sibling Family history of heart disease in male family member before age 55 Diabetes mellitus History of kidney cancer Mother DVT (deep venous thrombosis) Other Family history of cardiovascular disease Hypertension Social History Social History (Updated 07/13/25 @ 14:57 by Gemma Russ [facility]) Smoking status: Never smoker Second hand tobacco smoke exposure: No Alcohol intake: current Drinks per week: 5 Alcohol use details: beer Substance use: never Substance use type: does not use Lack of Transportation: No Lack of Food: Never True Current Housing: I Have Housing Concerned About Future Housing: No Difficulty Paying Gas/Electric Bills: No Difficulty Paying for Meds: No Currently Unemployed: No Education: High School Diploma/GED Difficulty w/ Childcare or Family Care: No Living arrangements: with family Occupation/Education: retired Additional occupation/education comments: [employer]. Gender identity (if verbalized by the patient): Male Spiritual care concerns: No Meds Home Medications and Allergies Home Medications ?Medication ?Instructions ?Recorded ?Confirmed ?Type amlodipine 5 mg tablet 5 mg PO DAILY 09/17/22 07/13/25 History carvedilol 25 mg tablet 25 mg PO Q12H 09/17/22 07/13/25 History fenofibrate 54 mg tablet 54 mg PO DAILY 09/17/22 07/13/25 History losartan 100 mg tablet 100 mg PO DAILY 09/17/22 07/13/25 History omeprazole 40 mg capsule,delayed 40 mg PO DAILY 09/17/22 07/13/25 History release tamsulosin 0.4 mg capsule 0.4 mg PO DAILY 09/17/22 07/13/25 History solifenacin 10 mg tablet 10 mg PO DAILY 02/02/23 07/13/25 History albuterol sulfate 90 mcg/actuation 2 puff inhalation QIDRT PRN cough 02/05/23 07/13/25 Rx aerosol inhaler (Proventil HFA) 60 days #6.7 grams aspirin 81 mg tablet 81 mg PO DAILY 07/13/25 07/13/25 History meloxicam 15 mg tablet 15 mg PO DAILY 07/13/25 07/13/25 History tirzepatide 15 mg/0.5 mL 15 mg subcut WEEKLY 07/13/25 07/13/25 History subcutaneous pen injector (Mounjaro) Allergies Allergy/AdvReac Type Severity Reaction Status Date / Time lisinopril AdvReac Unknown Itching Verified 07/13/25 14:35 Exam Const: General: no acute distress Resp: Effort & Inspection: normal respiratory effort GI: Inspection: non-distended GI Palp: No abdominal tenderness and No Guarding due to palpation present (GI) Auscultation: normal bowel sounds Assessment and Plan Assessment and plan (1) Elevated PSA: Code(s): R97.20 - Elevated prostate specific antigen [PSA] Status: Acute Assessment and Plan: UroNav prostate biopsy
[2025-08-18 14:11] VITALS: BMI 40.8
--- NOTE | 2025-08-18 14:24 | PC.NURSE ---
[facility] has started construction of its new state of the art ER which will open Spring 2026. With this, we anticipate parking may be a challenge for some our surgical patients and families. Parking spaces are limited but are available for all Surgical, obstetrics, and ER patients sharing this lot. If you arrive and find you are having a hard time finding a parking space, please note that we understand the challenges, please drive around the hospital and park near Hospital Entrance 1. When you enter this entrance, you can ask a volunteer to direct or take you back to the surgical waiting area to check in. We appreciate everyone?s understanding of these expected challenges while we build for your future. Report to the Outpatient Waiting Room, entrance under the green pavilion located off [address], at time __10:00am on date ___08/25/25____. Planned Procedure Time: __12:00pm .? Time changes happen often and if your time is changed the preop area will call you the afternoon before. - You and your visitor will be asked to self-screen and do not enter if you have any COVID symptoms. Please call surgeon if you need to reschedule. - A mask is optional within the hospital at this time. Patients may have clear liquids (water, carbonated beverages, clear teas, apple juice) until 3 hours prior to surgery with a maximum of 20 ounces. - No food from midnight until time of surgery and no smoking, or chewing tobacco (or any form of nicotine). No chewing gum, candy or mints. (09:00am) Take only the following medications with a SIP of water on the morning of surgery: __Amlodipine & Coreg , Tylenol if needed DO NOT STOP ANY OF YOUR OTHER PRESCRIPTION MEDICATIONS PRIOR TO SURGERY EXCEPT THE FOLLOWING Hold all vitamins, supplements, herb, Probiotics, Aspirin, NSAIDS,MELOXICAM- [address] Ho Date to take last dose___08/17/25 Pt to hold Mounjaro until post op, pt on it for weight loss not diabetes. Please no make-up, nail georgian, hairspray, perfume, deodorant, or body powder the day of surgery.? No jewelry (including any body piercings) or valuables the day of surgery, leave them at home.? Please take a shower or bath the night before, or the morning of, surgery with an antibacterial soap.? Wear comfortable, loose fitting clothing.? - Jewelry must be removed prior to entering the operating room.? Rings and piercings that are not removed may be cut off. - The hospital will not accept responsibility for valuables.? - Please leave all valuables, including medications, at home the day of surgery. If you are going home after surgery, a licensed hearse driver must drive you home.? - NO public transportation without another adult if you receive anesthesia. - We recommend that an adult stay with you for 24 hours following discharge. - We also recommend that you do not drive, make important decision, drink alcoholic beverages, or take any drugs that were not prescribed by your health care provider for at least 24 hours after your discharge time. Follow any additional instructions given to you from your surgeon. Telephone instructions given to __Patient & and asked if any additional questions and then verbalized understanding. Patient advised to call surgeon office or pre surgery nurse liaison [phone] if any additional questions.
--- NOTE | 2025-08-25 06:56 | WPDHPUPDATE1 ---
History and Physical Update Update Date/Time: 08/25/25 06:56 History and Physical has been reviewed, including an updated exam of the patient. There are NO changes in the patient's condition. Risks, benefits, and alternatives have been discussed and questions answered. Patient agrees to proceed with procedure.
[2025-08-25 10:42] VITALS: BP 163/84; PULSE 88; RESP 18; TEMP 37.2; O2SAT 98
[2025-08-25] MEDS: LACTATED RINGERS 1,000 ML 30 ML IV CONT (10:49)
--- NOTE | 2025-08-25 11:15 | WPDANESEPPF ---
Anes - Initial Pre Proc Eval Procedure: Operation Date: 08/25/25 12:00 Proposed Procedures p Trans Rectal Ultrasound Fusion Guided Prostate Biopsy - Franco Ho MD Date/Time: 08/25/25 11:15 Surgeon: Franco Ho MD Pre Op Diagnosis: elevated PSA Patient Data Age: 69 Gender: M Height: 1.73 m Weight: 123.8 kg Last Vital Signs Temp 37.2 C 08/25/25 10:42 Pulse 88 08/25/25 10:42 Resp 18 08/25/25 10:42 BP 163/84 H 08/25/25 10:42 Pulse Ox 98 08/25/25 10:42 O2 Del Method Room Air 08/25/25 10:42 Allergies Allergy/AdvReac Type Severity Reaction Status Date / Time lisinopril AdvReac Unknown Itching Verified 08/25/25 10:38 Home Medications ?Medication ?Instructions ?Recorded ?Confirmed ?Type amlodipine 5 mg tablet 5 mg PO DAILY 09/17/22 08/25/25 History carvedilol 25 mg tablet 25 mg PO Q12H 09/17/22 08/25/25 History fenofibrate 54 mg tablet 54 mg PO DAILY 09/17/22 08/25/25 History losartan 100 mg tablet 100 mg PO DAILY 09/17/22 08/25/25 History omeprazole 40 mg capsule,delayed 40 mg PO DAILY 09/17/22 08/25/25 History release tamsulosin 0.4 mg capsule 0.4 mg PO DAILY 09/17/22 08/25/25 History solifenacin 10 mg tablet 10 mg PO DAILY 02/02/23 08/25/25 History aspirin 81 mg tablet 81 mg PO DAILY 07/13/25 08/25/25 History Held on 08/18/25. Instructions: .Provider Order meloxicam 15 mg tablet 15 mg PO DAILY 07/13/25 08/25/25 History Held on 08/18/25. Instructions: .Provider Order tirzepatide 15 mg/0.5 mL 15 mg subcut WEEKLY 07/13/25 08/25/25 History subcutaneous pen injector (Justusunsabina) allopurinol 100 mg tablet 100 mg PO DAILY 08/18/25 08/25/25 History Patient hx anesthesia problems: none Family hx anesthesia problems: none Results Review: All pre-operative results and documents have been reviewed as part of the pre-operative evaluation. 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, fused and horseshoe kidney Osteoarthritis of right knee Actinic keratosis Right shoulder pain Obstructive sleep apnea Hyperlipemia, mixed Hypertension Type 2 diabetes mellitus Surgical History Surgical History History of carpal tunnel surgery History of arthroscopy of both shoulders History of arthroscopic knee surgery Family History Family History Father Family history of gout Family history of diabetes mellitus in first degree relative Family history of heart disease in male family member before age 55 Diabetes mellitus Acute myocardial infarction Sibling Family history of heart disease in male family member before age 55 Diabetes mellitus History of kidney cancer Mother DVT (deep venous thrombosis) Other Family history of cardiovascular disease Hypertension Social History Social History Smoking status: Former smoker Tobacco type: pipe Second hand tobacco smoke exposure: No Smoking end date: 09/08/84 Additional smoking assessment comments: Pipe at times prior Alcohol intake: current Drinks per week: 3 Alcohol use details: beer Substance use: never Substance use type: does not use Lack of Transportation: No Lack of Food: Never True Current Housing: I Have Housing Concerned About Future Housing: No Difficulty Paying Gas/Electric Bills: No Difficulty Paying for Meds: No Currently Unemployed: No Education: High School Diploma/GED Difficulty w/ Childcare or Family Care: No Living arrangements: with family Additional living arrangements comments: Occupation/Education: retired Additional occupation/education comments: [employer] Gender identity (if verbalized by the patient): Male Spiritual care concerns: No Anes - Eval Final PreProcedure Day of Procedure 08/25/25 11:15 Patient weight: morbidly obese Heart: regular rate and rhythm Lungs: clear to auscultation Airway: Mallampati scale Neurological: alert and oriented Last oral intake: >/= 8 hours ASA classification: III Emergent: no Anesthetic plan: proceed Anesthesia type and monitoring: general LMA and standard monitoring Results Review: All pre-operative results and documents have been reviewed as part of the pre-operative evaluation. Informed Consent: The patient's anesthetic plan and its attendant risks and benefits were discussed with the patient/family/POA. Questions were solicited and answers provided to the satisfaction of the patient/family/POA.
[2025-08-25] MEDS: cefTRIAXone 1 GM in SODIUM CHLORIDE 0.9% IV 50 ML 100 ML IVPB (11:28)
--- NOTE | 2025-08-25 11:35 | S_PTH ---
PATIENT: Deion Lopez LOC: [facility] U#:[id number] AGE/SX: 69/M ROOM: RE08/25/[address]: Franco Ho MD : 1955 BED: DIS: 08/25/2025 SPEC #: [id number] RECD: 08/25/25 12:30 STATUS: ANDRÉS RE #: [id number] HANK: 08/25/25 11:[address]: Franco Ho DEPT: [facility] Surgical RECD BY: Rashmi Santos ENTERED: 08/25/25 12:31 SP TYPE: Surgical OTHR DR: Anastacio Johnson MD Tissues: A - Prostate Bx B - Prostate Bx C - Prostate Bx D - Prostate Bx E - Prostate Bx F - Prostate Bx G - Prostate Bx H - Prostate Bx I - Prostate Bx J - Prostate Bx K - Prostate Bx L - Prostate Bx M - Prostate Bx Procedures: Unstained Slides Hematoxylin and Eosin Stain Prostate Biopsy PIN 4 Prostate Triple Stain
[2025-08-25 11:54] VITALS: BP 98/47; PULSE 90; RESP 14; O2SAT 95
--- NOTE | 2025-08-25 11:54 | W.PM.PROC2 ---
Procedure Note - Detailed Date of Procedure 08/25/25 Pre-op Diagnosis Elevated PSA Post-op Diagnosis Same Procedure Performed UroNav prostate biopsy Surgeon Franco Ho MD Anesthesia MAC Description of Procedure Patient is brought to the operative suite where he is positioned in the left lateral position. Systemic sedation is administered per the anesthesia department. Surgical time-out is undertaken and it's verified the patient has received preoperative antibiotics. Transrectal ultrasonography is undertaken with a standard transrectal probe. The [employer] system is used to superimpose his previously obtained mpMRI prostate images on the real-time transrectal ultrasond images. Prostate volume is calculated at 28cc. On the previous mpMRI there are 1 region of interest. Using the transrectal needle design for prostate biopsies 3 cores from each region of interest her obtain. We then proceeded with a standard 12 core prostate biopsy. Transrectal probe was removed and patient taken to recovery room having tolerated the procedure well. Blood loss was less than 10 cc. Drains No Packing No Pathology Yes
[2025-08-25 12:20] VITALS: BP 110/63; PULSE 87; RESP 18; O2SAT 95
[2025-08-25 12:50] VITALS: BP 149/74; PULSE 82; RESP 18; O2SAT 96
[2025-08-25 13:20] VITALS: BP 138/63; PULSE 83; RESP 16
== END 2025-08-25 13:24 | disposition home or self-care (01) ==
PROVIDERS: PCP Internal Medicine; Visit Provider Urology
PROC: (CPT 55700; principal; 2025-08-25 12:00)
DX: R97.20 Elevated prostate specific antigen [PSA] (principal); E78.5 Hyperlipidemia, unspecified; I10 Essential (primary) hypertension; E11.9 Type 2 diabetes mellitus without complications; I25.10 Atherosclerotic heart disease of native coronary artery without angina pectoris; M17.11 Unilateral primary osteoarthritis, right knee; G47.33 Obstructive sleep apnea (adult) (pediatric); M43.06 Spondylolysis, lumbar region; M48.061 Spinal stenosis, lumbar region without neurogenic claudication; L57.0 Actinic keratosis; E66.01 Morbid (severe) obesity due to excess calories; Z68.41 Body mass index [BMI] 40.0-44.9, adult; Z79.51 Long term (current) use of inhaled steroids; Z79.82 Long term (current) use of aspirin; Z79.85 Long-term (current) use of injectable non-insulin antidiabetic drugs; Z98.890 Other specified postprocedural states; Z87.891 Personal history of nicotine dependence; Z86.711 Personal history of pulmonary embolism; Z85.828 Personal history of other malignant neoplasm of skin; Z80.51 Family history of malignant neoplasm of kidney; Z82.49 Family history of ischemic heart disease and other diseases of the circulatory system
CPT/HCPCS: 76872; 55700; 82948; 88344; G0416; J0696; J2003; J2704; J3010; J7120